=== PATIENT | male | born 1975 | race Caucasian/White ===

== ENCOUNTER 2019-08-19 00:51 | Inpatient (IN) | payer SELFPAY ==
[2019-08-19] MEDS ORDERED: MAGNE/ALUM HYDROXD 30 ML UCUP ONE (01:44)
[2019-08-19] MEDS ORDERED: NA CHLORIDE 0.9% 1,000 ML ONE (01:44)
[2019-08-19] MEDS ORDERED: LIDOCAINE VISCOUS 2% SOLN 15 ML UDC ONE (01:44)
[2019-08-19 02:03] LABS: Absolute Lymphocytes (CBC) 2.6 K/uL (0.7-4.9); Basophils % 0.7 % (0-1.3); Hematocrit 47.4 % (39.6-49.0); Lymphocytes % 20.1 % (15.3-44.8); Protime INR 0.97; RBC Red Blood Cell Count 5.11 M/uL (4.33-5.43)
[2019-08-19 02:16] LABS: ALT/SGPT 34 U/L (12-78); AST/SGOT 26 U/L (15-37); Albumin 4.1 g/dL (3.4-5.0); Alkaline Phosphatase 73 U/L (45-117); BUN Blood Urea Nitrogen 20 mg/dL (7-18); Bicarbonate 24 mmol/L (21-32); Bilirubin Direct < 0.1 mg/dL (0-0.2); Bilirubin Total 0.4 mg/dL (0.2-1.0); Glucose Level 141 mg/dL (74-106); Magnesium 2.1 mg/dL (1.8-2.4); NT PRO-BNP 131 pg/mL (<125); Potassium 3.7 mmol/L (3.5-5.1); Protein, Total 7.7 g/dL (6.4-8.2); Sodium Level 141 mmol/L (136-145)
[2019-08-19 02:17] LABS: Troponin (Emerg Dept Use Only) 1.28 ng/mL (0.0-0.045)
--- NOTE | 2019-08-19 02:29 | ER ---
Nurse's Notes [facility] Name: Dawson Renee Age: 44 yrs Sex: Male : 1975 Arrival Date: 08/19/2019 Time: 00:54 Bed 13 Private MD: Diagnosis: Other chest pain;Essential (primary) hypertension;Tobacco abuse counseling;Tobacco use Presentation: 08/19 01:10 Presenting complaint: Patient states: he woke up this morning with the glands in his bb neck swollen and his "lungs feel on fire" pt denies nausea, light-headedness, he is also c/o left arm pain. Transition of care: patient was not received from another setting of care. Onset of symptoms was August 18, 2019. Risk Assessment: Do you want to hurt yourself or someone else? Patient reports no desire to harm self or others. Initial Sepsis Screen: Does the patient meet any 2 criteria? No. Patient's initial sepsis screen is negative. Does the patient have a suspected source of infection? No. Patient's initial sepsis screen is negative. Care prior to arrival: None. 01:10 Method Of Arrival: Ambulatory bb 01:10 Acuity: LC 3 bb Historical: - Allergies: 01:15 No Known Allergies; bb - Home Meds: 01:15 None [Active]; bb - PMHx: 01:15 None; bb - PSHx: 01:15 Ear Tubes; bb - Immunization history:: Adult Immunizations up to date. - Social history:: Smoking status: Patient uses tobacco products, smokes two packs cigarettes per day. - Ebola Screening: : No symptoms or risks identified at this time. - Family history:: not pertinent. Screenin:54 Abuse screen: Denies threats or abuse. Nutritional screening: No deficits noted. jd3 Tuberculosis screening: No symptoms or risk factors identified. Fall Risk Ambulatory Aid- None/Bed Rest/Nurse Assist (0 pts). Gait- Normal/Bed Rest/Wheelchair (0 pts) Mental Status- Oriented to own ability (0 pts). Total Childers Fall Scale indicates No Risk (0-24 pts). Assessment: 01:35 General: Appears in no apparent distress. uncomfortable, Behavior is calm, cooperative, jd3 appropriate for age. Pain: Complains of pain in chest, left arm and throat Quality of pain is described as aching. Neuro: Level of Consciousness is awake, alert, obeys commands, Oriented to person, place, time, situation. Cardiovascular: Heart tones S1 S2 present Capillary refill < 3 seconds Patient's skin is warm and dry. Respiratory: Airway is patent Respiratory effort is even, unlabored, Respiratory pattern is regular, symmetrical, Breath sounds are clear bilaterally. Denies cough, shortness of breath. GI: No signs and/or symptoms were reported involving the gastrointestinal system. : No signs and/or symptoms were reported regarding the genitourinary system. EENT: No signs and/or symptoms were reported regarding the EENT system. Derm: Skin is intact, Skin is dry, Skin is normal, Skin temperature is warm. Musculoskeletal: Circulation, motion, and sensation intact. Range of motion: intact in all extremities. 02:30 Reassessment: Patient appears in no apparent distress at this time. No changes from [facility] previously documented assessment. Patient and/or family updated on plan of care and expected duration. Pain level reassessed. Patient is alert, oriented x 3, equal unlabored respirations, skin warm/dry/pink. 03:04 Reassessment: Patient appears in no apparent distress at this time. Patient and/or [facility] family updated on plan of care and expected duration. Pain level reassessed. Patient is alert, oriented x 3, equal unlabored respirations, skin warm/dry/pink. Patient states feeling better. 04:03 Reassessment: Patient appears in no apparent distress at this time. Patient and/or jd3 family updated on plan of care and expected duration. Pain level reassessed. Patient is alert, oriented x 3, equal unlabored respirations, skin warm/dry/pink. pt charting continued in [facility]. Vital Signs: 01:15 BP 153 / 92; Pulse 71; Resp 16 S; Temp 98.1(O); Pulse Ox 99% on R/A; Weight 72.57 kg bb (R); Height 5 ft. 1 in. (154.94 cm) (R); Pain 6/10; 01:54 BP 157 / 98; Pulse 65; Resp 18 S; Pulse Ox 97% on R/A; jd3 03:04 BP 128 / 73; Pulse 75; Resp 18 S; Pulse Ox 95% on R/A; Pain 3/10; jd3 04:03 BP 157 / 97; Pulse 64; Resp 17 S; Pulse Ox 97% on R/A; jd3 01:15 Body Mass Index 30.23 (72.57 kg, 154.94 cm) bb ED Course: 00:54 Patient arrived in ED. cl3 01:13 Karan Dunn MD is Attending Physician. devon 01:15 Triage completed. bb 01:15 Arm band placed on Patient placed in an exam room, on a stretcher, on pulse oximetry. bb EKG completed in triage. Results shown to MD. 01:20 Arnoldo Snell, RN is Primary Nurse. jd3 01:36 Inserted saline lock: 20 gauge in right antecubital area, using aseptic technique. jd3 Blood collected. 01:54 Patient has correct armband on for positive identification. Placed in gown. Bed in low jd3 position. Call light in reach. Side rails up X 1. Adult w/ patient. 02:00 XRAY Chest (1 view) In Process Unspecified. EDMS 02:17 Notified ED physician of a critical lab result(s). troponin 1.8 Dr Dunn notified. bb 02:26 Chuck Sanchez MD is Hospitalizing Provider. devon 04:04 No provider procedures requiring assistance completed. Patient admitted, IV remains in jd3 place. 05:53 Notified ED physician of a critical lab result(s). troponin of 2.35. Dr Dunn bb notified. Administered Medications: 01:51 Drug: NS 0.9% 1000 ml Route: IV; Rate: 1 bolus; Site: right antecubital; jd3 02:50 Follow up: Response: No adverse reaction; IV Status: Completed infusion; IV Intake: jd3 1000ml 01:51 Drug: GI Cocktail without - (Maalox Suspension 30 ml, Lidocaine Liquid 2 % 15 jd3 ml) Route: PO; 02:50 Follow up: Response: No adverse reaction jd3 02:24 CANCELLED (Duplicate Order): PlaVIX 600 mg PO once devon 02:50 Drug: Zofran 4 mg Route: IVP; Site: right antecubital; jd3 03:50 Follow up: Response: No adverse reaction jd3 02:51 Not Given (Physician Discretion): Aspirin Chewable Tablet 324 mg PO once; 81 mg tablets jd3 x 4 02:52 Drug: Lovenox 1 mg/kg Route: Sub-Q; Site: abdomen; jd3 03:50 Follow up: Response: No adverse reaction jd3 02:52 Drug: Lopressor 25 mg Route: PO; jd3 03:50 Follow up: Response: No adverse reaction jd3 02:52 Drug: morphine 4 mg Route: IVP; Site: right antecubital; jd3 03:50 Follow up: Response: No adverse reaction; RASS: Alert and Calm (0) jd3 03:04 Drug: Pepcid 20 mg Route: IVP; Site: right antecubital; jd3 04:00 Follow up: Response: No adverse reaction jd3 03:04 Drug: Aspirin Chewable Tablet 81 mg Route: PO; jd3 04:04 Follow up: Response: No adverse reaction jd3 Intake: 02:50 IV: 1000ml; Total: 1000ml. jd3 Outcome: 02:22 Discharge ordered by . devon 02:27 Decision to Hospitalize by Provider. devon 04:04 Admitted to ER Hold. Please see [facility] for further documentation. jd3 04:04 Condition: stable 04:04 Instructed on the need for admit, Demonstrated understanding of instructions. 07:18 Patient left the ED. iw Signatures: Dispatcher [employer] EDKaran Au MD MD cha Ballard, Brenda RN Ingrid Montes RN RN iw Davies, Jonathon, RN RN jd3 Lewis, Charde cl3
--- NOTE | 2019-08-19 02:31 | EDPHYS ---
Physician Documentation [facility] Name: Dawson Renee Age: 44 yrs Sex: Male : 1975 Arrival Date: 08/19/2019 Time: 00:54 Bed 13 Private MD: MENA Physician Karan Dunn HPI: 08/19 01:23 This 44 yrs old Male presents to ER via Ambulatory with complaints of Swollen devon Glands. 01:23 The patient presents with sore throat. The patient describes throat pain as raw, devon scratchy. Onset: The symptoms/episode began/occurred 1 day(s) ago. The patient presents with pain, redness. The problem is located in the uvula, left aspect of posterior pharynx and right aspect of posterior pharynx. Modifying factors: The symptoms are alleviated by nothing, the symptoms are aggravated by nothing. Historical: - Allergies: 01:15 No Known Allergies; bb - Home Meds: 01:15 None [Active]; bb - PMHx: 01:15 None; bb - PSHx: 01:15 Ear Tubes; bb - Immunization history:: Adult Immunizations up to date. - Social history:: Smoking status: Patient uses tobacco products, smokes two packs cigarettes per day. - Ebola Screening: : No symptoms or risks identified at this time. - Family history:: not pertinent. ROS: 01:23 Constitutional: Negative for fever, chills, and weight loss, Eyes: Negative for injury, devon pain, redness, and discharge, Neck: Negative for injury, pain, and swelling, Cardiovascular: Negative for chest pain, palpitations, and edema, Respiratory: Negative for shortness of breath, cough, wheezing, and pleuritic chest pain, Abdomen/GI: Negative for abdominal pain, nausea, vomiting, diarrhea, and constipation, Back: Negative for injury and pain, : Negative for injury, bleeding, discharge, and swelling, MS/Extremity: Negative for injury and deformity, Skin: Negative for injury, rash, and discoloration, Neuro: Negative for headache, weakness, numbness, tingling, and seizure, Psych: Negative for depression, anxiety, suicide ideation, homicidal ideation, and hallucinations, Allergy/Immunology: Negative for hives, rash, and allergies, Endocrine: Negative for neck swelling, polydipsia, polyuria, polyphagia, and marked weight changes, Hematologic/Lymphatic: Negative for swollen nodes, abnormal bleeding, and unusual bruising. 01:23 ENT: Positive for sore throat. Exam: :23 Constitutional: This is a well developed, well nourished patient who is awake, alert, devon and in no acute distress. Head/Face: Normocephalic, atraumatic. Eyes: Pupils equal round and reactive to light, extra-ocular motions intact. Lids and lashes normal. Conjunctiva and sclera are non-icteric and not injected. Cornea within normal limits. Periorbital areas with no swelling, redness, or edema. Neck: Trachea midline, no thyromegaly or masses palpated, and no cervical lymphadenopathy. Supple, full range of motion without nuchal rigidity, or vertebral point tenderness. No Meningismus. Chest/axilla: Normal chest wall appearance and motion. Nontender with no deformity. No lesions are appreciated. Cardiovascular: Regular rate and rhythm with a normal S1 and S2. No gallops, murmurs, or rubs. Normal PMI, no JVD. No pulse deficits. Respiratory: Lungs have equal breath sounds bilaterally, clear to auscultation and percussion. No rales, rhonchi or wheezes noted. No increased work of breathing, no retractions or nasal flaring. Abdomen/GI: Soft, non-tender, with normal bowel sounds. No distension or tympany. No guarding or rebound. No evidence of tenderness throughout. Back: No spinal tenderness. No costovertebral tenderness. Full range of motion. Skin: Warm, dry with normal turgor. Normal color with no rashes, no lesions, and no evidence of cellulitis. MS/ Extremity: Pulses equal, no cyanosis. Neurovascular intact. Full, normal range of motion. Neuro: Awake and alert, GCS 15, oriented to person, place, time, and situation. Cranial nerves II-XII grossly intact. Motor strength 5/5 in all extremities. Sensory grossly intact. Cerebellar exam normal. Normal gait. Psych: Awake, alert, with orientation to person, place and time. Behavior, mood, and affect are within normal limits. :23 ENT: Posterior pharynx: Tonsils: bilaterally enlarged, with erythema, no exudate, Uvula: midline, edematous, erythema, swelling, that is mild, erythema, that is mild, exudate, is not appreciated, peritonsillar mass, is not appreciated, pooling of secretions, that are mild. Vital Signs: 01:15 BP 153 / 92; Pulse 71; Resp 16 S; Temp 98.1(O); Pulse Ox 99% on R/A; Weight 72.57 kg bb (R); Height 5 ft. 1 in. (154.94 cm) (R); Pain 6/10; 01:54 BP 157 / 98; Pulse 65; Resp 18 S; Pulse Ox 97% on R/A; jd3 03:04 BP 128 / 73; Pulse 75; Resp 18 S; Pulse Ox 95% on R/A; Pain 3/10; jd3 04:03 BP 157 / 97; Pulse 64; Resp 17 S; Pulse Ox 97% on R/A; jd3 01:15 Body Mass Index 30.23 (72.57 kg, 154.94 cm) MDM: 01:13 Patient medically screened. [facility] 01:29 Data reviewed: vital signs, nurses notes, lab test result(s), EKG, radiologic studies. [facility] 08/19 01:23 Order name: Basic Metabolic Panel; Complete Time: 02:19 [facility] 08/19 01:23 Order name: CBC with Diff; Complete Time: 02:19 [facility] 08/19 01:23 Order name: LFT's; Complete Time: 02:19 [facility] 08/19 01:23 Order name: Magnesium [facility] 08/19 01:23 Order name: NT PRO-BNP [facility] 08/19 01:23 Order name: PT-INR; Complete Time: 02:19 [facility] 08/19 01:23 Order name: Troponin (emerg Dept Use Only) [facility] 08/19 01:23 Order name: Strep; Complete Time: 02:19 [facility] 08/19 02:06 Order name: Throat Culture [facility] 08/19 04:40 Order name: Lipid Profile [facility] 08/19 04:40 Order name: Lipid Profile [facility] 08/19 04:40 Order name: NT PRO-BNP [facility] 08/19 04:40 Order name: NT PRO-BNP [facility] 08/19 04:40 Order name: Troponin I [facility] 08/19 01:23 Order name: XRAY Chest (1 view) [facility] 08/19 01:23 Order name: EKG; Complete Time: 01:27 [facility] 08/19 04:39 Order name: CONS Physician Consult [facility] 08/19 04:39 Order name: Echo with Doppler [facility] 08/19 04:40 Order name: Troponin I [facility] 08/19 04:40 Order name: Troponin I [facility] 08/19 01:23 Order name: Cardiac monitoring; Complete Time: 01:26 devon 08/19 01:23 Order name: EKG - Nurse/Tech; Complete Time: 01:26 devon 08/19 01:23 Order name: IV Saline Lock; Complete Time: 01:40 devon 08/19 01:23 Order name: Labs collected and sent; Complete Time: 01:40 devon 08/19 01:23 Order name: O2 Per Protocol; Complete Time: 01:26 devon 08/19 01:23 Order name: O2 Sat Monitoring; Complete Time: 01:26 devon 08/19 02:27 Order name: NPO; Complete Time: 02:29 devon 08/19 04:39 Order name: Heart Healthy [facility] 08/19 04:40 Order name: EKG Electrocardiogram [facility] 08/19 04:40 Order name: EKG Electrocardiogram [facility] 08/19 04:40 Order name: EKG Electrocardiogram [facility] 08/19 04:40 Order name: EKG Electrocardiogram [facility] Administered Medications: 01:51 Drug: NS 0.9% 1000 ml Route: IV; Rate: 1 bolus; Site: right antecubital; jd3 02:50 Follow up: Response: No adverse reaction; IV Status: Completed infusion; IV Intake: jd3 1000ml 01:51 Drug: GI Cocktail without - (Maalox Suspension 30 ml, Lidocaine Liquid 2 % 15 jd3 ml) Route: PO; 02:50 Follow up: Response: No adverse reaction jd3 02:24 CANCELLED (Duplicate Order): PlaVIX 600 mg PO once devon 02:50 Drug: Zofran 4 mg Route: IVP; Site: right antecubital; jd3 03:50 Follow up: Response: No adverse reaction jd3 02:51 Not Given (Physician Discretion): Aspirin Chewable Tablet 324 mg PO once; 81 mg tablets jd3 x 4 02:52 Drug: Lovenox 1 mg/kg Route: Sub-Q; Site: abdomen; jd3 03:50 Follow up: Response: No adverse reaction jd3 02:52 Drug: Lopressor 25 mg Route: PO; jd3 03:50 Follow up: Response: No adverse reaction jd3 02:52 Drug: morphine 4 mg Route: IVP; Site: right antecubital; jd3 03:50 Follow up: Response: No adverse reaction; RASS: Alert and Calm (0) jd3 03:04 Drug: Pepcid 20 mg Route: IVP; Site: right antecubital; jd3 04:00 Follow up: Response: No adverse reaction jd3 03:04 Drug: Aspirin Chewable Tablet 81 mg Route: PO; jd3 04:04 Follow up: Response: No adverse reaction jd3 Disposition: 08/19/19 02:27 Hospitalization ordered by Chuck Sanchez for Inpatient Admission. Preliminary diagnosis are Other chest pain, Essential (primary) hypertension, Tobacco abuse counseling, Tobacco use. - Bed requested for Intensive Care Unit. - Status is Inpatient Admission. iw - Condition is Fair. - Problem is new. - Symptoms have improved. UTI on Admission? No Signatures: Dispatcher [employer] EDMS Deb Hutchinson RN RN mw Anderson, Corey, MD MD cha Ballard, Brenda, RN RN bb Williams, Irene, RN RN iw Davies, Jonathon, RN RN jd3 Corrections: (The following items were deleted from the chart) 02:22 02:22 08/19/2019 02:22 Discharged to Home. Impression: Acute pharyngitis; Chest pain, devon unspecified - atypical. Condition is Stable. Discharge Instructions: Pharyngitis, Pharyngitis, [id number], Sore Throat, [id number]. Prescriptions for Augmentin 875-125 mg Oral Tablet - take 1 tablet by ORAL route every 12 hours for 10 days; 20 tablet, Pepcid 20 mg Oral Tablet - take 1 tablet by ORAL route every 12 hours; 20 tablet. and Forms are Medication Reconciliation Form, Thank You Letter, Antibiotic Education, Prescription Opioid Use. Follow up: Private Physician; When: 2 - 3 days; Reason: Recheck today's complaints, Continuance of care, Re-evaluation by your physician. Problem is new. Symptoms have improved. devon 02:24 02:20 PlaVIX 600 mg PO once ordered. devon devon 03:01 02:27 Hospitalization Ordered by Chuck Sanchez MD for Inpatient Admission. Preliminary diagnosis is Other chest pain; Essential (primary) hypertension; Tobacco abuse counseling; Tobacco use. Bed requested for Intensive Care Unit. Status is Inpatient Admission. Condition is Fair. Problem is new. Symptoms have improved. UTI on Admission? No. devon 06:02 03:01 08/19/2019 02:27 Hospitalization Ordered by Chuck Sanchez MD for Inpatient mw Admission. Preliminary diagnosis is Other chest pain; Essential (primary) hypertension; Tobacco abuse counseling; Tobacco use. Bed requested for [facility] ER HOLD. Status is Inpatient Admission. Condition is Fair. Problem is new. Symptoms have improved. UTI on Admission? No. mw 07:18 06:02 08/19/2019 02:27 Hospitalization Ordered by Chuck Sanchez MD for Inpatient iw Admission. Preliminary diagnosis is Other chest pain; Essential (primary) hypertension; Tobacco abuse counseling; Tobacco use. Bed requested for Intensive Care Unit. Status is Inpatient Admission. Condition is Fair. Problem is new. Symptoms have improved. UTI on Admission? No. mw
[2019-08-19] MEDS ORDERED: MORPHINE 4 MG/ML SYR ONE (02:39)
[2019-08-19] MEDS ORDERED: ONDANSETRON 4 MG/2 ML VIAL ONE (02:39)
[2019-08-19] MEDS ORDERED: ASPIRIN 81 MG CHEWABLE TABLET ONE (02:39)
[2019-08-19] MEDS ORDERED: METOPROLOL TAR 25 MG TAB ONE (02:39)
[2019-08-19] MEDS ORDERED: ENOXAPARIN 80 MG/0.8 ML SQ ONE (02:40)
[2019-08-19] MEDS ORDERED: FAMOTIDINE 20 MG/2 ML VIAL IV ONE (02:57)
--- NOTE | 2019-08-19 04:23 | P.HP ---
Certification for Inpatient Patient admitted to: Inpatient With expected LOS: >2 Midnights Patient will require the following post-hospital care: None Practitioner: I am a practitioner with admitting privileges, knowledge of patient current condition, hospital course, and medical plan of care. Services: Services provided to patient in accordance with Admission requirements found in Title 42 Section 412.3 of the Code of Federal Regulations Patient History Date of Service: 08/19/19 Reason for admission: Throat soreness/chest pain with radiation to the left arm History of Present Illness: Patient is a 44-year-old gentleman who came to the hospital with chest pain. Patient actually was having pain in his throat. He felt like he had an earache with swollen lymph nodes. He came into the ER because he was having some pressure around his chest region. In the emergency room his workup revealed an elevated troponin level. Patient did not have any EKG changes. Patient has a non ST-elevation myocardial infarction. Patient will be admitted to the hospital for further workup. Plan to do a cardiac catheterization this morning. Cardiology consultation and echocardiogram pending. Allergies No Known Allergies Allergy (Unverified 08/19/19 04:11) Home medications list reviewed: Yes - Past Medical/Surgical History Has patient received pneumonia vaccine in the past: No Diabetic: No -: Hypertension Past Surgical History: Patient denies surgical history - Family History Father Family History: Reviewed- Non-Contributory - Social History Smoking Status: Current every day smoker (2 packs per day) Alcohol use: No CD- Drugs: No Review of Systems 10-point ROS is otherwise unremarkable Physical Examination - Vital Signs Temperature: 98.6 F Blood Pressure: 140/90 Pulse: 88 Respirations: 18 Pulse Ox (%): 95 - Physical Exam General: Alert, In no apparent distress, Oriented x3 HEENT: Atraumatic, Normocephalic Neck: Supple, 2+ carotid pulse no bruit, JVD not distended, No Thyromegaly Respiratory: Clear to auscultation bilaterally, Normal air movement Cardiovascular: Normal pulses, Regular rate/rhythm, Normal S1 S2, No murmurs Gastrointestinal: Normal bowel sounds, Hypoactive, Soft and benign, Non- distended, No rebound, No guarding Musculoskeletal: No clubbing, No swelling Integumentary: No rashes Neurological: Normal gait, Normal speech, Normal strength at 5/5 x4 extr, Normal tone, Sensation intact, Cranial nerves 3-12 intact - Studies Laboratory Data (last 24 hrs) 08/19/19 01:36: PT 11.5, INR 0.97 08/19/19 01:36: WBC 13.1 H, Hgb 16.1, Hct 47.4, Plt Count 269 08/19/19 01:36: Sodium 141, Potassium 3.7, BUN 20 H, Creatinine 0.81, Glucose 141 H, Magnesium 2.1, Total Bilirubin 0.4, AST 26, ALT 34, Alkaline Phosphatase 73 Microbiology Data (last 24 hrs): 08/19/19 01:36 Throat Group A Streptococcus Rapid Screen - Final Assessment & Plan - Problems (Diagnosis) (1) Non-ST elevation (NSTEMI) myocardial infarction Current Visit: Yes Status: Acute (2) Tobacco abuse Current Visit: Yes Status: Acute (3) Hypertension Current Visit: Yes Status: Acute - Plan 1. Serial troponins and EKG 2. Cardiology consultation for cardiac catheterization 3. Echocardiogram will be reviewed 4. Anti-platelet therapy, anti coagulation, beta-lara, statin, and O2 as needed 5. IV morphine for pain 6. Nitro p.r.n. 7. GI and DVT prophylaxis Discharge Plan: Home Plan to discharge in: 24 Hours - Advance Directives Does patient have a Living Will: No Does patient have a Durable POA for Healthcare: No - Code Status/Comfort Care Code Status Assessed: Yes Code Status: Full Code Critical Care: No Time Spent Managing PTS Care (In Minutes): 45
[2019-08-19] MEDS ORDERED: ACETAMINOPHEN 500 MG TAB PO PRN (04:28)
[2019-08-19] MEDS ORDERED: HEPA 1000U/500MLS 1,000 UNIT/500 ML BAG IV ONE (06:38)
[2019-08-19] MEDS ORDERED: LIDOCAINE 1% 20 ML MDV ONE (06:38)
[2019-08-19] MEDS ORDERED: MIDAZOLAM HCL 2 MG/2 ML INJ ONE ×2 (07:25→07:26)
[2019-08-19] MEDS ORDERED: FENTANYL CITR 100 MCG/2 ML ONE (07:25)
[2019-08-19] MEDS ORDERED: NITROGLYCERIN/D5W 0 MG/0 ML BTL IV ONE (07:26)
[2019-08-19] MEDS ORDERED: NA CHLORIDE 0.9% 0 ML ONE (07:26)
[2019-08-19] MEDS ORDERED: NITROGLYCERIN 100 MCG/ML SYR (for cath lab use only) IV ONE (07:26)
[2019-08-19] MEDS ORDERED: ATROPINE SULF 1 MG/10 ML SYR IV ONE (07:26)
[2019-08-19] MEDS ORDERED: NA CHLORIDE 0.9% 500 ML ONE (07:28)
--- NOTE | 2019-08-19 07:39 | RAD REPORT ---
EXAM DESCRIPTION: RAD - Chest Single View - 08/19/2019 1:50 am CLINICAL HISTORY: Cough, chest pain is COMPARISON: None. TECHNIQUE: AP portable chest image was obtained 0141 hours . FINDINGS: No peripheral mass or consolidation. There is mild accentuation of the lung markings due t o shallow inspiration. No significant failure or volume overload. No pulmonary edema pattern. Trachea is midline. Heart and vasculature are normal. No measurable pleural effusion and no pneumotho rax. No acute bony abnormality seen. No acute aortic findings suspected. IMPRESSION: No acute cardiopulmonary process.
[2019-08-19] MEDS ORDERED: INFLUENZA VACCINE (for 3y+) 0.5 ML DOSE IMVAC ONE (09:00)
[2019-08-19] MEDS ORDERED: ENOXAPARIN 40 MG/0.4 ML SQ SCH (09:00)
[2019-08-19] MEDS ORDERED: ACETAMINOPHEN 325 MG TABLET PO PRN (10:00)
[2019-08-19] MEDS ORDERED: NA CHLORIDE 0.9% 1,000 ML IV SCH (10:00)
[2019-08-19] MEDS: METOPROLOL TAR 50 MG TAB PO SCH ×2 (10:11→20:47)
[2019-08-19] MEDS: CLOPIDOGREL 75 MG TABLET PO SCH (10:12)
[2019-08-19] MEDS: ASPIRIN EC 81 MG TAB PO SCH (10:12)
--- NOTE | 2019-08-19 11:02 | RAD REPORT ---
EXAM DESCRIPTION: [place]omen[place] Single View08/19/2019 10:36 am CLINICAL HISTORY: SOB COMPARISON: AUGUST 19, 2019 FINDINGS: Mild right upper parahilar opacity is suspected. Remainder lungs appear clear. The heart is normal size IMPRESSION: Mild right upper parahilar opacity may indicate a mild pneumonia.
[2019-08-19] MEDS: MORPHINE 4 MG/ML SYR IV PRN ×2 (11:47→18:01)
[2019-08-19] MEDS: CEFTRIAXONE/SWI 1gm 1 GM/10 ML SYR IV SCH (11:47)
[2019-08-19] MEDS: ONDANSETRON 4 MG/2 ML VIAL IV PRN ×2 (11:56→18:01)
[2019-08-19] MEDS ORDERED: BENZONATATE 100 MG CAP PO PRN (12:22)
[2019-08-19] MEDS: IPRATROPIUM BROM 0.5MG/2.5ML NEB SCH ×2 (13:00→19:50)
[2019-08-19] MEDS: ALBUTEROL 2.5 MG/3 ML NEB SOL NEB SCH ×2 (13:00→19:50)
--- NOTE | 2019-08-19 13:49 | EKG ---
Test Date: 2019-08-19 Test Time: 03:00:29 Glaciologist: SUKHDEEP MEASUREMENT RESULTS: Intervals: Rate: 65 SC: 170 QRSD: 88 QT: 386 QTc: 401 [place]: P: 39 SC: 170 QRS: 13 T: 47 INTERPRETIVE STATEMENTS: Sinus rhythm with premature atrial complexes Otherwise normal ECG Compared to ECG 08/19/2019 01:17:04 Atrial premature complex(es) now present Sinus arrhythmia no longer present Electronically Signed On 08-19-19 13:46:58 CARE SERVICES MANAGER by Santiago Tolentino
--- NOTE | 2019-08-19 13:49 | EKG ---
Test Date: 2019-08-19 Test Time: 01:17:04 [employer] Electronic War[employer] Officer: FRANKLIN MEASUREMENT RESULTS: Intervals: Rate: 64 [place]: 162 QRSD: 92 QT: 388 QTc: 400 [place]: P: 31 [place]: 162 QRS: 11 T: 39 INTERPRETIVE STATEMENTS: Normal sinus rhythm with sinus arrhythmia Normal ECG No previous ECG available for comparison Electronically Signed On 08-19-19 13:47:01 BREAST SPLITTER by Santiago Tolentino
--- NOTE | 2019-08-19 14:23 | ECHO ---
HEIGHT: 5 ft 1 in WEIGHT: 160 lb 0 oz DATE OF STUDY: 08/19/[address]: Chuck Sanchez MD 2-DIMENSIONAL: YES M.MODE: YES DOPPLER: YES COLOR FLOW: YES TDS: PORTABLE: DEFINITY: BUBBLE STUDY: DIAGNOSIS: NSTEMI CARDIAC HISTORY: CATHERIZATION: YES SURGERY: NO PROSTHETIC VALVE: NO PACEMAKER: NO MEASUREMENTS (cm) DIASTOLIC (NORMALS) SYSTOLIC (NORMALS) IVSd 1.0 (0.6-1.2) LA Diam 3.8 (1.9-4.0) LVEF 64% LVIDd 4.2 (3.5-5.7) LVIDs 2.7 (2.0-3.5) %FS 35% LVPWd 1.2 (0.6-1.2) Ao Diam 3.1 (2.0-3.7) 2 DIMENSIONAL ASSESSMENT: RIGHT ATRIUM: NORMAL LEFT ATRIUM: NORMAL RIGHT VENTRICLE: NORMAL LEFT VENTRICLE: NORMAL TRICUSPID VALVE: NORMAL MITRAL VALVE: NORMAL PULMONIC VALVE: NORMAL AORTIC VALVE: NORMAL PERICARDIAL EFFUSION: NONE AORTIC ROOT: NORMAL LEFT VENTRICULAR WALL MOTION: NORMAL DOPPLER/COLOR FLOW: NORMAL COMMENTS: NORMAL 2-DIMENSIONAL ECHOCARDIOGRAM WITH DOPPLER. NO WALL MOTION ABNORMALITY. NO EFFUSION. TECHNOLOGIST: SARAH FULTON
[2019-08-19] MEDS: NITROGLYCERIN 0.4 MG/TAB SL PRN ×2 (15:27→15:36)
--- NOTE | 2019-08-19 15:36 | CON ---
Date of Consultation: 08/19/[address] Sanchez's service on 08/19/2019. I saw the patient on 08/19/2019. Reason For Consultation: [id number] myocardial infarction. History Of Present Illness: Mr. Renee is 44, has really no past medical history except that he is a heavy smoker. Has a history of heart disease in his family. Denied diabetes, cholesterol, hyperten barbara. Came in with initially complained of sore throat and swollen tonsils, but he was also having s ome chest burning. His EKG was normal. His troponin was positive consistent with fpw-ED-ewntizhez m yocardial infarction. The patient denied PND, orthopnea, pedal edema, palpitations, or syncope. Sym ptoms have been going on for about 2 days. Past Medical History: Negative. Allergies: NONE. Review of Systems: Negative. Social History: Positive for tobacco. Family History: Positive for heart disease. Medications: At home are none. Physical Examination: Vital Signs: Stable. He was afebrile. He was in sinus rhythm. Continued to have some slight chest burning. HEENT: Negative. Neck: Supple with no bruit. Chest: Clear. Cardiac: Revealed irregular rhythm and rate. No murmurs, gallops, or rubs. Abdomen: Benign. Extremities: Revealed no clubbing, cyanosis, or edema. Diagnostic Data: Listed earlier. Impression And Plan: 1.Acute fjy-QF-zanuymulg myocardial infarction. 2.Viral syndrome. I will plan to take Mr. Renee to the cardiac catheterization lab today, do a heart catheterization t o define his coronary anatomy and decide on the plans later. CHRISSIE/JOVANNI Voice ID: [id number] Report ID: [id number]
[2019-08-19] MEDS: BUDESONIDE 0.25 MG/2 ML NEB NEB SCH (19:50)
[2019-08-19] MEDS: ATORVASTATIN 20 MG TAB PO SCH (20:46)
[2019-08-19] MEDS: ALPRAZOLAM 0.25 MG TABLET PO PRN (20:46)
[2019-08-19] MEDS: GUAIFENESIN 600 MG SA TAB PO SCH (20:47)
--- NOTE | 2019-08-19 21:33 | OP ---
Date of Procedure: 08/19/2019 Surgeon: Santiago Tolentino MD Aircraft Delivery Checker: Linda Astudillo. Procedure: Left heart catheterization and selective coronary arteriogram. Indication: Otn-GJ-inddwgmzs myocardial infarction. Procedure In Detail: Mr. Renee came into the emergency room on 08/19/2019, with chest burning, posi tive troponin, brought to the entry level lab technician from the emergency room. He was prepped and draped in the rou marlyn sterile fashion. Given Versed for sedation. A 6-Panamanian sheath introduced in the right common f emoral artery successfully. Pamela catheter 6-Panamanian left and right were used to inject the left ma in and right main respectively. His right coronary artery was normal, was dominant. He has some dif fuse plaquing throughout, but no focal stenosis. His LAD was normal. Circumflex itself was small, c ompletely occluded. He had large obtuse marginal that was patent. Complications: None. Estimated Blood Loss: 5 mL. 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 Plan: To continue medical therapy. No intervention indicated at this time. Patient has become asym ptomatic. He needs to be on aspirin, beta blockers, high-dose statin. He needs to quit smoking. Th e case was discussed with Dr. Willis. He also has a viral syndrome with elevated white count and a q uestionable pneumonia and we will watch him at least overnight before planning to discharge him. Jacky e was discussed with the patient. Anesthesia: Total conscious sedation was 30 minutes. CHRISSIE/JOVANNI Voice ID: [id number] Report ID: [id number]
[2019-08-20] MEDS: IPRATROPIUM BROM 0.5MG/2.5ML NEB SCH ×4 (02:35→22:15)
[2019-08-20] MEDS: ALBUTEROL 2.5 MG/3 ML NEB SOL NEB SCH ×4 (02:35→22:15)
[2019-08-20 05:23] LABS: Absolute Lymphocytes (CBC) 2.4 K/uL (0.7-4.9); Basophils % 0.3 % (0-1.3); Hematocrit 47.3 % (39.6-49.0); Lymphocytes % 13.4 % (15.3-44.8); RBC Red Blood Cell Count 5.12 M/uL (4.33-5.43)
[2019-08-20 05:30] LABS: BUN Blood Urea Nitrogen 10 mg/dL (7-18); Bicarbonate 26 mmol/L (21-32); Glucose Level 118 mg/dL (74-106); HDL Cholesterol 41 mg/dL (40-60); LDL Cholesterol, Calculated 160 (<130); Magnesium 2.2 mg/dL (1.8-2.4); Phosphorus 2.4 mg/dL (2.5-4.9); Sodium Level 137 mmol/L (136-145)
[2019-08-20] MEDS: BUDESONIDE 0.25 MG/2 ML NEB NEB SCH ×2 (09:15→22:15)
[2019-08-20] MEDS: CEFTRIAXONE/SWI 1gm 1 GM/10 ML SYR IV SCH (10:05)
[2019-08-20] MEDS: ASPIRIN EC 81 MG TAB PO SCH (10:06)
[2019-08-20] MEDS: POTASS/SODIUM PHOSPHATE 1 PKT POWD.PACK PO SCH ×2 (10:06→10:09)
[2019-08-20] MEDS: METOPROLOL TAR 50 MG TAB PO SCH ×2 (10:06→20:18)
[2019-08-20] MEDS: CLOPIDOGREL 75 MG TABLET PO SCH (10:06)
[2019-08-20] MEDS: GUAIFENESIN 600 MG SA TAB PO SCH ×2 (10:08→20:18)
[2019-08-20] MEDS ORDERED: ALBUTEROL INHALER 60 PUFF/8 GM IH PRN (11:18)
--- NOTE | 2019-08-20 12:37 | P.DS ---
Admission Date: 08/19/19 Discharge Date: 08/20/19 Primary Care Provider: none Disposition: ROUTINE DISCHARGE Discharge Condition: GOOD Reason for Admission: Throat soreness/chest pain with radiation to the left arm Consultations: Cardiology-Dr. Tolentino Procedures: Follow up CXR: COMPARISON: AUGUST 19, 2019 FINDINGS: Mild right upper parahilar opacity is suspected. Remainder lungs appear clear. The heart is normal size IMPRESSION: Mild right upper parahilar opacity may indicate a mild pneumonia. ECHO: Ejection fraction 64% LEFT VENTRICULAR WALL MOTION: NORMAL DOPPLER/COLOR FLOW: NORMAL COMMENTS: NORMAL 2-DIMENSIONAL ECHOCARDIOGRAM WITH DOPPLER. NO WALL MOTION ABNORMALITY. NO EFFUSION. Heart Catheterization: Date of Procedure: 08/19/2019 Surgeon: Santiago Tolentino MD Treatment Coordinator: Linda Astudillo. Procedure: Left heart catheterization and selective coronary arteriogram. Indication: Yam-RD-xsidcjeqc myocardial infarction. Procedure In Detail: His right coronary artery was normal, was dominant. He has some diffuse plaquing throughout, but no focal stenosis. His LAD was normal. Circumflex itself was small, completely occluded. He had large obtuse marginal that was patent. Complications: None. Estimated Blood Loss: 5 mL. 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 Plan: To continue medical therapy. No intervention indicated at this time. Patient has become asymptomatic. He needs to be on aspirin, beta blockers, high -dose statin. He needs to quit smoking. Medical Problem List: Chest pain secondary to NSTEMI with heart catheterization showing complete occlusion of small nondominant circumflex, medical therapy recommended Right upper lobe pneumonia Hypertension Hyperlipidemia Suspect COPD Tobacco abuse Brief History of Present Illness: 44-year-old male presented to emergency room with chest pain. Patient found to have NSTEMI. The patient was admitted for further evaluation. Hospital Course: Patient presented with chest pain. Patient found to have NSTEMI. Cardiology consulted. Cardiology recommended heart catheterization for further evaluation. Heart catheterization performed. Right Coronary artery was normal and dominant. Diffuse plaquing throughout noted but no stenosis. His LAD was normal. Circumflex was small and completely occluded. Patient had large fall obtuse margin that was patent. No intervention indicated at that time. Cardiology recommended medical therapy. Patient has done well post heart catheterization. At discharge patient will continue with aspirin 81 mg daily, metoprolol 25 mg 1 pill twice daily, Lipitor 40 mg daily and nitroglycerin to be use as needed for chest pain. Recommend to quit smoking. Patient plans to quit. Recommend follow up with cardiology in 1-2 weeks to follow up this hospitalization. Patient also found to have right upper lobe pneumonia. Pro calcitonin negative. Patient has done well with treatment. At discharge patient will continue with Augmentin 500 mg twice daily for 7 days. Patient may take over- the-counter Delsym for cough and Mucinex for congestion. Recommend to recheck chest x-ray in 2-4 weeks to monitor resolution. Patient with hypertension. As mentioned above patient will continue with metoprolol 25 mg 1 pill twice daily. Further adjustment can be done by his PCP or cardiology. Patient with hyperlipidemia. LDL elevated. As recommended above, patient will continue with Lipitor 40 mg daily. Suspect COPD due to his chronic tobacco abuse. Patient plans to quit. Will provide nicotine patch at discharge. Will also provide pro air 2 puffs 3 times a day as needed for shortness of breath and Dulera 1 puff twice daily. Sample of Dulera 1 puff twice daily will be provided. Recommend to follow up with pulmonology as an outpatient to further evaluate. Patient may require pulmonary function tests in the near future to further assess. Patient plans to establish care with a local physician. Will provide information on [facility]. Vital Signs/Physical Exam: Temp Pulse Resp BP Pulse Ox 98.3 F 74 20 135/78 93 08/20/19 12:00 08/20/19 12:00 08/20/19 12:00 08/20/19 12:00 08/20/19 12:00 General: Alert, In no apparent distress, Oriented x3, Cooperative HEENT: Atraumatic Neck: Supple Respiratory: Clear to auscultation bilaterally, Normal air movement Cardiovascular: Normal pulses, Regular rate/rhythm Gastrointestinal: Normal bowel sounds, Soft and benign, Non-distended Musculoskeletal: No contractures, No erythema, No tenderness, No warmth Integumentary: No tenderness/swelling, No erythema, No warmth, No cyanosis Neurological: Normal speech, Normal strength at 5/5 x4 extr, Normal tone Laboratory Data at Discharge: WBC 17.9 K/uL (4.3-10.9) H D 08/20/19 04:45 Hgb 15.9 g/dL (13.6-17.9) 08/20/19 04:45 Hct 47.3 % (39.6-49.0) 08/20/19 04:45 Plt Count 265 K/uL (152-406) 08/20/19 04:45 PT 11.5 SECONDS (9.5-12.5) 08/19/19 01:36 INR 0.97 08/19/19 01:36 Sodium 137 mmol/L (136-145) 08/20/19 04:45 Potassium 4.0 mmol/L (3.5-5.1) 08/20/19 04:45 BUN 10 mg/dL (7-18) 08/20/19 04:45 Creatinine 0.71 mg/dL (0.55-1.3) 08/20/19 04:45 Glucose 118 mg/dL (74-106) H 08/20/19 04:45 Phosphorus 2.4 mg/dL (2.5-4.9) L 08/20/19 04:45 Magnesium 2.2 mg/dL (1.8-2.4) 08/20/19 04:45 Total Bilirubin 0.4 mg/dL (0.2-1.0) 08/19/19 01:36 AST 26 U/L (15-37) 08/19/19 01:36 ALT 34 U/L (12-78) 08/19/19 01:36 Alkaline Phosphatase 73 U/L (45-117) 08/19/19 01:36 Troponin I 7.58 ng/mL (0.0-0.045) H* 08/19/19 13:55 Triglycerides 113 mg/dL (<150) 08/20/19 04:45 Cholesterol 224 mg/dL (<200) H 08/20/19 04:45 HDL Cholesterol 41 mg/dL (40-60) 08/20/19 04:45 Cholesterol/HDL Ratio 5.46 08/20/19 04:45 Home Medications: Amoxicillin/Potassium Clav [Augmentin 500-125 Tablet] 1 each PO BID #14 tablet 08/20/19 Aspirin [Aspirin EC 81 MG] 81 mg PO DAILY #90 tablet. 08/20/19 Atorvastatin Calcium [Lipitor] 40 mg PO BEDTIME #30 tab 08/20/19 Mometasone/Formoterol [Dulera 100 Mcg/5 Mcg Inhaler] 1 puff IH BID #1 inhaler Nicotine [Nicoderm] 1 patch TD DAILY #30 patch.td24 08/20/19 Nitroglycerin [Nitrostat] 0.4 mg SL SEECOM #1 btl 08/20/19 RX: Albuterol Inhaler [Ventolin Inhaler*] 2 puff IH TID PRN #1 hfa.aer.ad RX: Metoprolol Tartrate [Lopressor*] 25 mg PO BID #60 tab 08/20/19 New Medications: Amoxicillin/Potassium Clav [Augmentin 500-125 Tablet] 1 each PO BID #14 tablet Aspirin [Aspirin EC 81 MG] 81 mg PO DAILY #90 tablet. Atorvastatin Calcium [Lipitor] 40 mg PO BEDTIME #30 tab Mometasone/Formoterol [Dulera 100 Mcg/5 Mcg Inhaler] 1 puff IH BID #1 inhaler Nicotine [Nicoderm] 1 patch TD DAILY #30 patch.td24 Nitroglycerin [Nitrostat] 0.4 mg SL SEECOM #1 btl RX: Albuterol Inhaler [Ventolin Inhaler*] 2 puff IH TID PRN #1 hfa.aer.ad PRN Reason: Shortness Of Breath RX: Metoprolol Tartrate [Lopressor*] 25 mg PO BID #60 tab Patient Discharge Instructions: 1. Recommend to establish care with a PCP to follow up this hospitalization. Patient will be provided information on [facility]. 2. Patient presented with chest pain. Patient found to have NSTEMI. Cardiology consulted. Cardiology recommended heart catheterization for further evaluation. Heart catheterization performed. Right Coronary artery was normal and dominant. Diffuse plaquing throughout noted but no stenosis. His LAD was normal. Circumflex was small and completely occluded. Patient had large fall obtuse margin that was patent. No intervention indicated at that time. Cardiology recommended medical therapy. Patient has done well post heart catheterization. At discharge patient will continue with aspirin 81 mg daily, metoprolol 25 mg 1 pill twice daily, Lipitor 40 mg daily and nitroglycerin to be use as needed for chest pain. Recommend to quit smoking. Patient plans to quit. Recommend follow up with cardiology in 1-2 weeks to follow up this hospitalization. 3. Patient also found to have right upper lobe pneumonia. Pro calcitonin negative. Patient has done well with treatment. At discharge patient will continue with Augmentin 500 mg twice daily for 7 days. Patient may take [id number] Delsym for cough and Mucinex for congestion. Recommend to recheck chest x-ray in 2-4 weeks to monitor resolution. 4. Patient with hypertension. As mentioned above patient will continue with metoprolol 25 mg 1 pill twice daily. Further adjustment can be done by his PCP or cardiology. 5. Patient with hyperlipidemia. LDL elevated. As recommended above, patient will continue with Lipitor 40 mg daily. 6. Suspect COPD due to his chronic tobacco abuse. Patient plans to quit. Will provide nicotine patch at discharge. Will also provide pro air 2 puffs 3 times a day as needed for shortness of breath and Dulera 1 puff twice daily. Sample of Dulera 1 puff twice daily will be provided. Recommend to follow up with pulmonology as an outpatient to further evaluate. Patient may require pulmonary function tests in the near future to further assess. Diet: AHA Activity: Ad radha Time spent managing pt's care (in minutes): 55
--- NOTE | 2019-08-20 13:17 | RAD REPORT ---
EXAM DESCRIPTION: RAD - Chest Pa And Lat (2 Views) - 08/20/2019 1:10 pm CLINICAL HISTORY: follow up pneumonia COMPARISON: Chest Single View dated 08/19/2019; Chest Single View dated 08/19/2019 TECHNIQUE: Frontal and lateral views of the chest were obtained. FINDINGS: The lungs are slightly underinflated. Prominent perihilar lung markings are noted. Finding s are slightly worse in the right upper lobe. Overall pattern is not substantially different. Heart size is normal and central vasculature is within normal limits. Small right pleural effusion has de veloped. No acute bony finding noted. No aortic abnormality. IMPRESSION: Prominent lung parenchymal pattern showing no change from August 19 imaging. New small right pleural effusion.
[2019-08-20] MEDS ORDERED: FUROSEMIDE 40 MG/4 ML VIAL IV ONE (16:00)
[2019-08-20] MEDS: ATORVASTATIN 20 MG TAB PO SCH (20:18)
[2019-08-20] MEDS: ALPRAZOLAM 0.25 MG TABLET PO PRN (20:18)
--- NOTE | 2019-08-20 20:34 | PN ---
Date of Progress Note: 08/20/2019 Mr. Renee had a catheterization yesterday after having an acute non-ST elevation myocardial infarcti on. The catheterization showed moderate diffuse plaquing in the LAD and the right coronary artery. He had a small circumflex that was completely occluded. It was nondominant. He had large first and second obtuse marginal. I decided against any intervention. He had an ostial circumflex stenosis as well. The plan was to treat him medically. He should be on aspirin, Plavix, Lipitor, and Toprol. There were some question regarding a possible pneumonia on x-ray. Chest x-ray is pending. Case was discussed with Dr. Willis. I am comfortable with him going home later on this evening or tomorrow. I would like to see him in the office in the next 2 to 4 weeks. He should have his tobacco issue dis cussed further and needs to have lipid profile down the road, probably a stress test every couple of years. CHRISSIE/JOVANNI Voice ID: [id number] Report ID: [id number]
[2019-08-21] MEDS: IPRATROPIUM BROM 0.5MG/2.5ML NEB SCH ×2 (02:57→08:59)
[2019-08-21] MEDS: ALBUTEROL 2.5 MG/3 ML NEB SOL NEB SCH ×2 (02:57→08:00)
[2019-08-21 05:13] LABS: Absolute Lymphocytes (CBC) 2.8 K/uL (0.7-4.9); Basophils % 0.4 % (0-1.3); Hematocrit 46.2 % (39.6-49.0); Lymphocytes % 18.7 % (15.3-44.8); MPV 7.8 fL (7.6-11.3); RBC Red Blood Cell Count 5.05 M/uL (4.33-5.43)
[2019-08-21 05:21] LABS: BUN Blood Urea Nitrogen 11 mg/dL (7-18); Bicarbonate 26 mmol/L (21-32); Glucose Level 110 mg/dL (74-106); Magnesium 2.1 mg/dL (1.8-2.4); Phosphorus 2.3 mg/dL (2.5-4.9); Potassium 3.4 mmol/L (3.5-5.1); Sodium Level 138 mmol/L (136-145)
[2019-08-21 06:21] VITALS: BMI 29.0
[2019-08-21] MEDS ORDERED: POTASSIUM PHOS IN 0.9 % NACL 15 MMOL/250 ML BAG IV ONE (07:00)
[2019-08-21 07:29] VITALS: O2SAT 95
[2019-08-21] MEDS ORDERED: POTASSIUM 25 MEQ EFFERV TAB PO ONE (08:00)
[2019-08-21 08:52] VITALS: TEMP 98.1
[2019-08-21] MEDS: BUDESONIDE 0.25 MG/2 ML NEB NEB SCH (08:59)
[2019-08-21] MEDS ORDERED: POTASS/SODIUM PHOSPHATE 1 PKT POWD.PACK PO SCH (09:00)
[2019-08-21] MEDS: GUAIFENESIN 600 MG SA TAB PO SCH (09:27)
[2019-08-21] MEDS: METOPROLOL TAR 50 MG TAB PO SCH (09:27)
[2019-08-21] MEDS: CLOPIDOGREL 75 MG TABLET PO SCH (09:27)
[2019-08-21] MEDS: ASPIRIN EC 81 MG TAB PO SCH (09:27)
[2019-08-21 09:31] VITALS: BP 115/73
[2019-08-21] MEDS: CEFTRIAXONE/SWI 1gm 1 GM/10 ML SYR IV SCH (09:31)
[2019-08-21] MEDS ORDERED: DULERA 100/5 (MOMETASONE/FORMOTEROL) INHALER IH SCH (10:15)
--- NOTE | 2019-08-21 12:06 | RAD REPORT ---
EXAM DESCRIPTION: RAD - Chest Pa And Lat (2 Views) - 08/21/2019 8:55 am CLINICAL HISTORY: follow up pneumonia Chest pain. COMPARISON: Chest Pa And Lat (2 Views) dated 08/20/2019; Chest Single View dated 08/19/2019; Chest Singl e View dated 08/19/2019 FINDINGS: Mild improvement is seen in lung aeration since the comparative study. Trace pleural effus ions persist. The heart is normal in size. No displaced fractures. IMPRESSION: Mild improvement is seen in lung aeration since the comparative study.
== END 2019-08-21 10:40 | disposition home or self-care (01) | DRG 280 ==
LOC: ER 00:51 → ERHOLD 04:44 → 3RD-ICU 08:54
PROVIDERS: ADMIT Hospitalist; ATTEND Family Medicine
PROC: 4A023N7 Measurement of Cardiac Sampling and Pressure, Left Heart, Percutaneous Approach (ICD-10-PCS; principal; 2019-08-19)
PROC: B215YZZ Fluoroscopy of Left Heart using Other Contrast (ICD-10-PCS; 2019-08-19)
DX: I21.4 Non-ST elevation (NSTEMI) myocardial infarction (principal); J18.9 Pneumonia, unspecified organism; J90 Pleural effusion, not elsewhere classified; I25.10 Atherosclerotic heart disease of native coronary artery without angina pectoris; F17.210 Nicotine dependence, cigarettes, uncomplicated; I10 Essential (primary) hypertension; J44.9 Chronic obstructive pulmonary disease, unspecified; E78.5 Hyperlipidemia, unspecified; B34.9 Viral infection, unspecified
CPT/HCPCS: 36415; 71045; 71046; 80048; 80061; 80076; 83735; 83880; 84100; 84145; 84484; 85025; 85610; 87040; 87070; 87081; 87205; 87804; 93005; 93306; 93454; 94640; 96361; 96372; 96374; 96375; 99285; C1760; C1893; J0583; J0696; J1650; J1940; J2250; J2405; J3010; J7030; J7040; J7606

== ENCOUNTER 2021-03-06 03:48 | Inpatient (IN) | payer SELFPAY ==
[2021-03-06] MEDS ORDERED: METHYLPREDNISOLONE 125 MG INJ ONE (04:45)
[2021-03-06] MEDS ORDERED: LEVALBUTEROL 1.25 MG/3 ML NEB ONE (04:46)
[2021-03-06] MEDS ORDERED: NA CHLORIDE 0.9% 1,000 ML ONE ×2 (04:46→11:09)
[2021-03-06] MEDS ORDERED: ACETAMINOPHEN 500 MG TAB ONE ×2 (05:43→05:48)
[2021-03-06 06:01] LABS: ALT/SGPT 77 U/L (12-78); AST/SGOT 74 U/L (15-37); Albumin 3.5 g/dL (3.4-5.0); Alkaline Phosphatase 75 U/L (45-117); BUN Blood Urea Nitrogen 13 mg/dL (7-18); Bicarbonate 21 mmol/L (21-32); Bilirubin Direct 0.2 mg/dL (0-0.2); Bilirubin Total 0.9 mg/dL (0.2-1.0); Glucose Level 129 mg/dL (74-106); Potassium 3.3 mmol/L (3.5-5.1); Protein, Total 6.9 g/dL (6.4-8.2); Sodium Level 135 mmol/L (136-145); Troponin I < 0.02 ng/mL (0.0-0.045)
[2021-03-06 06:15] LABS: Absolute Lymphocytes (CBC) 0.9 K/uL (0.7-4.9); Basophils % 0.7 % (0-1.3); Hematocrit 45.6 % (39.6-49.0); Lymphocytes % 16.3 % (15.3-44.8); RBC Red Blood Cell Count 4.95 M/uL (4.33-5.43)
--- NOTE | 2021-03-06 07:53 | RAD REPORT ---
EXAM DESCRIPTION: Philomena Single View03/06/2021 7:35 am CLINICAL HISTORY: Shortness of breath COMPARISON: 2019 FINDINGS: The lungs appear clear of acute infiltrate. The heart is normal size IMPRESSION: No acute abnormalities displayed
[2021-03-06] MEDS ORDERED: CEFTRIAXONE/SWI 1gm 1 GM/10 ML SYR ONE (08:34)
--- NOTE | 2021-03-06 08:38 | EDPHYS ---
Physician Documentation [facility] Name: Dawson Renee Age: 45 yrs Sex: Male : 1975 Arrival Date: 03/06/2021 Time: 03:53 Bed 6 Private MD: ED Physician vEer Cohn HPI: 03/06 04:29 This 45 yrs old Male presents to ER via Ambulatory with complaints of rn Shortness Of Breath. 04:29 The patient has shortness of breath at rest, with light activity. Onset: The rn symptoms/episode began/occurred 3 day(s) ago. Duration: The symptoms are intermittent. The patient's shortness of breath is aggravated by exertion, light activity, is alleviated by rest. Associated signs and symptoms: Pertinent positives: productive cough, fever, Pertinent negatives: hemoptysis, loss of consciousness. Severity of symptoms: At their worst the symptoms were moderate in the emergency department the symptoms are unchanged. The patient has experienced a previous episode. The patient has not recently seen a physician. Historical: - Allergies: 04:03 No Known Allergies; bb - Home Meds: 04:03 Metoprolol Tartrate Oral [Active]; atorvastatin oral [Active]; Aspirin Oral [Active]; bb - PMHx: 04:03 Hypertensive disorder; Myocardial infarction; high cholesterol; bb - PSHx: 04:03 Unable to Obtain; bb - Immunization history:: Adult Immunizations up to date, Client reports having NOT received the Covid vaccine. - Social history:: Smoking status: Patient reports the use of cigarette tobacco products, smokes 1.5 packs per day, Patient/guardian denies using alcohol. - Family history:: not pertinent. - Hospitalizations: : No recent hospitalization is reported. ROS: 04:29 Constitutional: Positive for fever and chills Eyes: Negative for injury, pain, redness, rn and discharge, ENT: Negative for injury, pain, and discharge, Neck: Negative for injury, pain, and swelling, Cardiovascular: Negative for chest pain, palpitations, and edema, Respiratory: Positive for productive cough Abdomen/GI: Negative for abdominal pain, nausea, vomiting, diarrhea, and constipation, Back: Negative for injury and pain, : Negative for injury, bleeding, discharge, and swelling, MS/Extremity: Negative for injury and deformity, Skin: Negative for injury, rash, and discoloration, Neuro: Negative for headache, weakness, numbness, tingling, and seizure. Exam: 04:29 Constitutional: This is a well developed, well nourished patient who is awake, alert, rn and in no acute distress. Head/Face: Normocephalic, atraumatic. Eyes: Periorbital areas with no swelling, redness, or edema. ENT: Dry mucous membranes. No stridor Cardiovascular: Regular rate and rhythm. No pulse deficits. Respiratory: Mild tachypnea without retractions Abdomen/GI: Soft, non-tender, with normal bowel sounds. No distension or tympany. No guarding or rebound. No evidence of tenderness throughout. Skin: Warm, dry MS/ Extremity: Pulses equal, no cyanosis. Neurovascular intact. Full, normal range of motion. Equal circumference. Neuro: Awake and alert, GCS 15 Vital Signs: 03:56 BP 131 / 75; Pulse 93; Resp 20 S; Temp 103.3(O); Pulse Ox 98% on R/A; Weight 70.31 kg bb (R); Height 5 ft. 1 in. (154.94 cm) (R); Pain 2/10; 05:38 BP 134 / 68; Pulse 119; Resp 19; Pulse Ox 93% ; ea 06:25 BP 123 / 67; Pulse 97; Resp 20; Temp 101.4(O); Pulse Ox 97% on R/A; ak2 07:21 BP 91 / 53; Pulse 82; Resp 28; Pulse Ox 94% ; hb 08:15 BP 98 / 45; Pulse 76; Resp 19; Temp 99.2(TE); Pulse Ox 93% on R/A; hb 09:14 BP 92 / 53; Pulse 80; Resp 19; Pulse Ox 96% on R/A; hb 10:00 BP 91 / 46; Pulse 56; Resp 21; Temp 99.1; Pulse Ox 95% on R/A; hb 03:56 Body Mass Index 29.29 (70.31 kg, 154.94 cm) bb MDM: 04:05 Patient medically screened. rn 06:44 Differential diagnosis: Bronchitis Chronic Obstructive Pulmonary Disease pneumonia, rn Pneumothorax pulmonary edema. Data reviewed: vital signs, nurses notes, lab test result(s), radiologic studies, plain films. Counseling: I had a detailed discussion with the patient and/or guardian regarding: the historical points, exam findings, and any diagnostic results supporting the discharge/admit diagnosis, lab results. Response to treatment: the patient's symptoms have mildly improved after treatment, and as a result, I will continue to observe the patient. ED course: Patient states feels a little bit better. Fever has come down to 101.4 oxygen around 92% heart rate improving. Covid still pending.. 06:56 Transition of care: After a detail discussion of the patient's case, care is rn transferred to Chuck Curtis MD. 08:36 Antibiotic administration: The patient is discharged and will get outpatient ma2 antibiotics. 03/06 04:13 Order name: Blood Culture Adult (2) rn 03/06 04:13 Order name: Flu rn 03/06 04:13 Order name: COVID-19 : Document "Date of Symptom Onset" if Symptomatic. rn 03/06 06:01 Order name: Lactate; Complete Time: 06:35 EDTX 03/06 06:01 Order name: Basic Metabolic Panel; Complete Time: 06:35 [facility] 03/06 06:01 Order name: Liver (Hepatic) Function; Complete Time: 06:35 EDTX 03/06 06:01 Order name: Troponin I; Complete Time: 06:35 EDTX 03/06 06:10 Order name: Influenza Screen (A ; Complete Time: 06:35 EDTX 03/06 06:15 Order name: CBC with Automated Diff; Complete Time: 06:35 EDTX 03/06 07:08 Order name: Procalcitonin; Complete Time: 08:04 [facility] 03/06 07:10 Order name: SARS-COV-2 RT PCR; Complete Time: 08:04 [facility] 03/06 07:53 Order name: RAD; Complete Time: 08:04 EDTX 03/06 08:13 Order name: Blood Culture [facility] 03/06 08:13 Order name: Blood Culture [facility] 03/06 10:01 Order name: Urinalysis [facility] 03/06 04:13 Order name: Accucheck; Complete Time: 05:16 03/06 04:13 Order name: Cardiac monitoring; Complete Time: 05:16 rn 03/06 04:13 Order name: EKG - Nurse/Tech; Complete Time: 05:16 rn 03/06 04:13 Order name: IV Saline Lock - Large Bore; Complete Time: 05:16 rn 03/06 04:13 Order name: Labs collected and sent; Complete Time: 05:16 rn 03/06 04:13 Order name: O2 Per Protocol; Complete Time: 05:16 rn 03/06 04:13 Order name: O2 Sat Monitoring; Complete Time: 05:16 rn 03/06 08:42 Order name: EKG Electrocardiogram; Complete Time: 09:22 EDMS 03/06 09:33 Order name: Diet Regular; Complete Time: 09:34 hb Administered Medications: 04:37 Drug: NS 0.9% 1000 ml Route: IV; Rate: 1000 ml; Site: right forearm; ea 04:37 Drug: SOLU-Medrol (methylPrednisoLONE) 125 mg Route: IVP; Site: right forearm; ea 05:32 Follow up: Response: No adverse reaction ea 04:37 Drug: Xopenex (levalbuterol) (3) 1.25 mg Route: Inhalation; ea 05:32 Drug: Tylenol 1000 mg Route: PO; ea 08:15 Follow up: Response: No adverse reaction hb 08:14 Drug: Rocephin (cefTRIAXone) 1 grams Route: IV; Rate: calculated rate; Site: right hb antecubital; 08:15 Follow up: IV Status: Completed infusion; IV Intake: 10ml hb 09:00 Follow up: Response: No adverse reaction hb 09:20 Drug: AZITHromycin 500 mg Route: IVPB; Infused Over: 1 hrs; Site: right antecubital; hb Disposition Summary: 03/06/21 08:37 Hospitalization Ordered Provider: Yefri Cohn Condition: Stable ma2 Problem: new ma2 Symptoms: are unchanged ma2 Bed/Room Type: Standard ma2 Hospitalization Status: Inpatient Admission(03/06/21 08:37) ma2 Location: Telemetry/MedSurg (Inpatient)(03/06/21 10:51) dw Room Assignment: 207(03/06/21 10:51) Diagnosis - Hypoxemia ma2 - Other pneumonia, unspecified organism ma2 Forms: - Medication Reconciliation Form ma2 - SBAR form ma2 Signatures: Dispatcher [employer] Shelly Hernandez RN RN dw Ballard, Brenda, RN RN bb Nieto, Roman, MD MD rn Baxter, Heather, RN RN Cottrell, Juani, RN RN Chuck Marin MD MD ma2 Corrections: (The following items were deleted from the chart) 08:23 08:05 BASIC METABOLIC PANEL+C.LAB.BRZ ordered. EDMS EDMS 08:23 08:05 CBC+H.LAB.BRZ ordered. EDMS EDMS 08:23 08:05 HEPATIC FUNCTION+C.LAB.BRZ ordered. EDMS EDMS 08:23 08:05 LACTATE+C.LAB.BRZ ordered. EDMS EDMS 08:23 08:05 PCT+C.LAB.BRZ ordered. EDMS EDMS 08:23 08:05 TROPONIN (EMERG DEPT USE ONLY)+C.LAB.BRZ ordered. EDMS EDMS 08:23 08:05 Chest Single View+RAD.RAD.BRZ ordered. EDMS EDMS 08:23 08:17 Blood Culture ordered. EDMS EDMS 08:23 08:17 Influenza Screen (A ordered. EDMS EDMS 08:23 08:17 CORONAVIRUS ordered. EDMS EDMS 08:37 08:37 Observation ma2 ma2 10:36 08:37 Telemetry/MedSurg (Inpatient) ma2 hb 10:36 08:37 ma2 hb 10:51 10:36 [facility] ER HOLD hb dw 10:51 10:36 ERHOLD- hb dw
--- NOTE | 2021-03-06 08:38 | ER ---
Nurse's Notes [facility] Name: Dawson Renee Age: 45 yrs Sex: Male : 1975 Arrival Date: 03/06/2021 Time: 03:53 Bed 6 Private MD: Diagnosis: Hypoxemia;Other pneumonia, unspecified organism Presentation: 03/06 03:56 Chief complaint: Patient states: he has felt disoriented the last 3 days then tonight bb he started having chills, sweats, coughing then losing his breath. Coronavirus screen: cough unrelated to allergies, shortness of breath, Client presents with at least one sign or symptom that may indicate coronavirus-19. Standard/surgical mask placed on the client. Ebola Screen: No symptoms or risks identified at this time. Initial Sepsis Screen: Does the patient meet any 2 criteria? Temp <36.0*C (96.8*F)) or > 38.3*C (100.9*F). Altered Mental Status. Yes Does the patient have a suspected source of infection? Yes: Productive cough/pneumonia. Risk Assessment: Do you want to hurt yourself or someone else? Patient reports no desire to harm self or others. Onset of symptoms was March 03, 2021. 03:56 Method Of Arrival: Ambulatory bb 03:56 Acuity: LC 3 bb Triage Assessment: 06:26 General: Appears in no apparent distress. Pain: Denies pain. Neuro: No deficits noted. ak2 Cardiovascular: Rhythm is sinus tachycardia. Respiratory: Onset: The symptoms/episode began/occurred gradually, the patient has mild shortness of breath. Respiratory: Breath sounds with wheezes. Respiratory: Breath sounds with wheezes bilaterally. Onset: The symptoms/episode began/occurred Historical: - Allergies: 04:03 No Known Allergies; bb - Home Meds: 04:03 Metoprolol Tartrate Oral [Active]; atorvastatin oral [Active]; Aspirin Oral [Active]; bb - PMHx: 04:03 Hypertensive disorder; Myocardial infarction; high cholesterol; bb - PSHx: 04:03 Unable to Obtain; bb - Immunization history:: Adult Immunizations up to date, Client reports having NOT received the Covid vaccine. - Social history:: Smoking status: Patient reports the use of cigarette tobacco products, smokes 1.5 packs per day, Patient/guardian denies using alcohol. - Family history:: not pertinent. - Hospitalizations: : No recent hospitalization is reported. Screenin:40 Abuse screen: Denies threats or abuse. Nutritional screening: No deficits noted. ea Tuberculosis screening: No symptoms or risk factors identified. Fall Risk IV access (20 points). Assessment: 04:40 General: Appears uncomfortable, Behavior is appropriate for age. Pain: Denies pain. ea Neuro: Level of Consciousness is awake, alert, obeys commands, Oriented to person, place, time. Cardiovascular: Patient's skin is warm and dry. Respiratory: Airway is patent Respiratory effort is even, unlabored, Respiratory pattern is regular, symmetrical. Respiratory: Reports shortness of breath. Derm: Skin is pink, warm \T\ dry. 06:25 Reassessment: Patient and/or family updated on plan of care and expected duration. Pain ak2 level reassessed. Cardiovascular: Rhythm is sinus tachycardia. Respiratory: Breath sounds with wheezes. 07:21 Reassessment: Patient appears in no apparent distress at this time. No changes from hb previously documented assessment. Patient and/or family updated on plan of care and expected duration. Pain level reassessed. 08:15 Reassessment: Patient appears in no apparent distress at this time. Patient and/or hb family updated on plan of care and expected duration. Pain level reassessed. 09:14 Reassessment: Dr. Cohn and Maggie RT at bedside. Pt admitted, awaiting floor orders and hb room assignment at this time. 10:00 Reassessment: Patient appears in no apparent distress at this time. No changes from previously documented assessment. Patient and/or family updated on plan of care and expected duration. Pain level reassessed. Vital Signs: 03:56 BP 131 / 75; Pulse 93; Resp 20 S; Temp 103.3(O); Pulse Ox 98% on R/A; Weight 70.31 kg bb (R); Height 5 ft. 1 in. (154.94 cm) (R); Pain 2/10; 05:38 BP 134 / 68; Pulse 119; Resp 19; Pulse Ox 93% ; ea 06:25 BP 123 / 67; Pulse 97; Resp 20; Temp 101.4(O); Pulse Ox 97% on R/A; ak2 07:21 BP 91 / 53; Pulse 82; Resp 28; Pulse Ox 94% ; hb 08:15 BP 98 / 45; Pulse 76; Resp 19; Temp 99.2(TE); Pulse Ox 93% on R/A; hb 09:14 BP 92 / 53; Pulse 80; Resp 19; Pulse Ox 96% on R/A; hb 10:00 BP 91 / 46; Pulse 56; Resp 21; Temp 99.1; Pulse Ox 95% on R/A; hb 03:56 Body Mass Index 29.29 (70.31 kg, 154.94 cm) bb ED Course: 03:53 Patient arrived in ED. ag3 04:03 Triage completed. bb 04:03 Arm band placed on Patient placed in an exam room, on a stretcher, on pulse oximetry. bb 04:05 Ever Cohn MD is Attending Physician. rn 04:10 Juani Cottrell RN is Primary Nurse. ea 04:40 Patient has correct armband on for positive identification. Bed in low position. Call ea light in reach. Side rails up X2. 06:26 No provider procedures requiring assistance completed. Inserted saline lock: 18 gauge ak2 in right antecubital area, using aseptic technique. 08:37 Yefri Cohn MD is Hospitalizing Provider. ma2 Administered Medications: 04:37 Drug: NS 0.9% 1000 ml Route: IV; Rate: 1000 ml; Site: right forearm; ea 04:37 Drug: SOLU-Medrol (methylPrednisoLONE) 125 mg Route: IVP; Site: right forearm; ea 05:32 Follow up: Response: No adverse reaction ea 04:37 Drug: Xopenex (levalbuterol) (3) 1.25 mg Route: Inhalation; ea 05:32 Drug: Tylenol 1000 mg Route: PO; ea 08:15 Follow up: Response: No adverse reaction hb 08:14 Drug: Rocephin (cefTRIAXone) 1 grams Route: IV; Rate: calculated rate; Site: right hb antecubital; 08:15 Follow up: IV Status: Completed infusion; IV Intake: 10ml hb 09:00 Follow up: Response: No adverse reaction hb 09:20 Drug: AZITHromycin 500 mg Route: IVPB; Infused Over: 1 hrs; Site: right antecubital; hb Intake: 08:15 IV: 10ml; Total: 10ml. hb Outcome: 08:37 Decision to Hospitalize by Provider. ma2 10:30 Admitted to ER Hold. Please see [facility] for further documentation. hb 10:30 Condition: stable 10:30 Instructed on the need for admit, Demonstrated understanding of instructions. 12:28 Patient left the ED. hb Signatures: Patricia Garcia RN RN bb Ever Cohn MD MD rn Baxter, Heather, RN RN Juani Cottrell RN RN ea Alzahri, Mohammad, MD MD ma2 Rakel Daniels Anthony ak2 Corrections: (The following items were deleted from the chart) 06:37 06:25 BP 123 / 67; Pulse 97bpm; Resp 20bpm; Pulse Ox 97% RA; ak2 ak2
[2021-03-06] MEDS ORDERED: AZITHROMYCIN IV 500 MG in NA CHLORIDE 0.9% 250 ML IVPB ONE (09:00)
--- NOTE | 2021-03-06 10:08 | P.HP ---
Certification for Inpatient Patient admitted to: Observation With expected LOS: <2 Midnights Practitioner: I am a practitioner with admitting privileges, knowledge of patient current condition, hospital course, and medical plan of care. Services: Services provided to patient in accordance with Admission requirements found in Title 42 Section 412.3 of the Code of Federal Regulations Patient History Date of Service: 03/06/21 Reason for admission: Pneumonia History of Present Illness: 45yo M, PMH: HTN, NSTEMI, presumed COPD, nicotine dependence. Presents to ED with ~3 days of not feeling well, feeling disoriented at times, followed by chills, malaise/fatigue, shortness of breath, and productive cough. He denies any sick contacts. Denies h/o COVID and has not been vaccinated. Labwork in ED rather unremarkable, CXR: possible pneumonia. He was noted to be slightly hypoxic of 91-92% on room air. BP was initially WNL, repeat blood pressures were 90-100/60s. Patient denies taking BP medications this morning. Reports only ate a few crackers yesterday. Decreased appetite for the last ~3 days as well. Denies wheezing, no chest pain/pressure, no nausea/vomiting, no abdominal pain, no change in bowel/bladder habits. ER physician would like to admit patient for further treatment for pneumonia. Allergies No Known Allergies Allergy (Unverified 08/19/19 04:11) Home Medications: Albuterol Inhaler [Ventolin Inhaler*] 2 puff IH TID PRN #1 hfa.aer.ad 08/20/19 Amoxicillin/Potassium Clav [Augmentin 500-125 Tablet] 1 each PO BID #14 tablet 08/20/19 Aspirin [Aspirin EC 81 MG] 81 mg PO DAILY #90 tablet. 08/20/19 Atorvastatin Calcium [Lipitor] 40 mg PO BEDTIME #30 tab 08/20/19 Metoprolol Tartrate [Lopressor*] 25 mg PO BID #60 tab 08/20/19 Mometasone/Formoterol [Dulera 100 Mcg/5 Mcg Inhaler] 1 puff IH BID #1 inhaler 08/20/19 Nicotine [Nicoderm] 1 patch TD DAILY #30 patch.td24 08/20/19 Nitroglycerin [Nitrostat] 0.4 mg SL SEECOM #1 btl 08/20/19 - Past Medical/Surgical History Diabetic: No -: Hypertension -: presumed COPD -: NSTEMI Past Surgical History: Patient denies surgical history - Family History Father -: Heart disease - Social History Smoking Status: Current every day smoker (1.5 ppd) Alcohol use: No CD- Drugs: No Caffeine use: Yes Place of Residence: Home Review of Systems 10-point ROS is otherwise unremarkable Physical Examination - Studies Laboratory Data (last 24 hrs) 03/06/21 04:30: WBC 5.80, Hgb 16.0, Hct 45.6, Plt Count 129 L 03/06/21 04:30: Sodium 135 L, Potassium 3.3 L, BUN 13, Creatinine 0.83, Glucose 129 H, Total Bilirubin 0.9, AST 74 H, ALT 77, Alkaline Phosphatase 75, Troponin I < 0.02 03/06/21 04:13: WBC Cancelled, Hgb Cancelled, Hct Cancelled, Plt Count Cancelled 03/06/21 04:13: Sodium Cancelled, Potassium Cancelled, BUN Cancelled, Creatinine Cancelled, Glucose Cancelled, Total Bilirubin Cancelled, AST Cancelled, ALT Cancelled, Alkaline Phosphatase Cancelled Microbiology Data (last 24 hrs): 03/06/21 04:30 Nasopharnyx Influenza Type A Antigen Screen - Final 03/06/21 04:30 Nasopharnyx Influenza Type B Antigen Screen - Final Assessment and Plan - Advance Directives Does patient have a Living Will: No Does patient have a Durable POA for Healthcare: No Physician Review Additional Text: Physical Exam Gen: NAD, AAOx3, diaphoretic HEENT: normal conjunctiva, sclera anicteric CV: regular rate/rhythm, no murmur Pulm: nonlabored respirations on RA, diminished at bases bilaterally Abd: soft, nontender, nondistended MSK: no joint swelling/tenderness Integumentary: no rashes, no lesions Neuro: AAOx3, moving all extremities, no focal findings Problem List Community acquired pneumonia vs COPD exacerbation HTN CAD -SIRS 3/4 - T: 103 on presentation, tachypneic. tachycardic, no leukocytosis. Currently afebrile, no tachypnea/tachycardia -does not appear septic at this time -BP initially WNL but now reading lower, will check manual, 1L bolus given in ED, continue IVF -hypotension likely secondary to hypovolemia, will see if responds to fluid, pt with minimal PO intake the last 2-3 days, and diaphoretic in ED -antibiotics given in ED, continue with Levaquin -confirm home meds, restart as appropriate -denies chest pain, trop negative, EKG ok -cultures ordered -covid negative -discussed tobacco cessation, no current plan, does not want nicotine patch at this time VTE: lovenox diet: regular Dispo: anticipate dc home in 24-48hrs Time Spent Managing Pts Care (In Minutes): 60
[2021-03-06] MEDS ORDERED: ONDANSETRON 4 MG/2 ML VIAL IV PRN (10:35)
[2021-03-06] MEDS ORDERED: ALBUTEROL 2.5 MG/3 ML NEB SOL NEB PRN ×2 (10:35→16:00)
[2021-03-06] MEDS: NA CHLORIDE 0.9% 1,000 ML IV SCH ×2 (10:35→22:06)
[2021-03-06] MEDS: Levofloxacin 750mg IV 750 MG/150 ML BAG IV SCH (10:35)
[2021-03-06] MEDS ORDERED: ACETAMINOPHEN 500 MG TAB PO PRN (10:35)
[2021-03-06 10:38] VITALS: BMI 29.2
--- NOTE | 2021-03-06 10:41 | EKG ---
Test Date: 2021-03-06 Test Time: 04:25:27 [employer] Frame Builder: GRACIELA MEASUREMENT RESULTS: Intervals: Rate: 88 KS: 176 QRSD: 96 QT: 328 QTc: 396 [place]: P: 53 KS: 176 QRS: -17 T: 59 INTERPRETIVE STATEMENTS: Normal sinus rhythm Normal ECG Compared to ECG 08/19/2019 03:00:29 Atrial premature complex(es) no longer present Electronically Signed On 03-06-21 10:41:01 CDT by Santiago Tolentino
[2021-03-06] MEDS ORDERED: Levofloxacin 750mg IV 750 MG/150 ML BAG IV ONE (11:09)
[2021-03-06] MEDS ORDERED: NA CHLORIDE 0.9% 1,000 ML IV ONE (15:00)
[2021-03-06] MEDS: IPRATROPIUM BROM 0.5MG/2.5ML NEB SCH ×2 (15:30→20:50)
[2021-03-06] MEDS: ALBUTEROL 2.5 MG/3 ML NEB SOL NEB SCH ×2 (15:30→20:50)
[2021-03-06] MEDS ORDERED: IPRATROPIUM BROM 0.5MG/2.5ML ONE (15:33)
[2021-03-06] MEDS ORDERED: ALBUTEROL 2.5 MG/3 ML NEB SOL ONE (15:33)
[2021-03-06 17:50] LABS: Urine Appearance CLEAR (Clear); Urine Bilirubin NEGATIVE (Negative); Urine Blood TRACE (Negative); Urine Color YELLOW (Yellow); Urine Glucose 3+ (Negative); Urine Protein TRACE (Negative); Urine Specific Gravity 1.025 (1.005-1.030); Urine pH 6.5 (5.0-7.0)
[2021-03-06 18:00] LABS: Urine Microscopic Reflex ORDER UMIC
[2021-03-06 18:07] LABS: Urine Bacteria <20 /HPF (NONE SEEN); Urine RBC <5 /HPF (NONE SEEN)
[2021-03-07 00:31] VITALS: TEMP 97.7
[2021-03-07] MEDS: IPRATROPIUM BROM 0.5MG/2.5ML NEB SCH ×2 (02:30→08:45)
[2021-03-07] MEDS: ALBUTEROL 2.5 MG/3 ML NEB SOL NEB SCH ×2 (02:30→08:45)
[2021-03-07 06:30] LABS: Absolute Lymphocytes (CBC) 2.4 K/uL (0.7-4.9); Basophils % 0.1 % (0-1.3); Hematocrit 40.5 % (39.6-49.0); Lymphocytes % 18.6 % (15.3-44.8); MPV 8.4 fL (7.6-11.3); RBC Red Blood Cell Count 4.38 M/uL (4.33-5.43)
[2021-03-07 06:31] LABS: BUN Blood Urea Nitrogen 12 mg/dL (7-18); Bicarbonate 24 mmol/L (21-32); Glucose Level 130 mg/dL (74-106); Magnesium 2.3 mg/dL (1.8-2.4); Potassium 3.7 mmol/L (3.5-5.1); Sodium Level 142 mmol/L (136-145)
[2021-03-07] MEDS: NA CHLORIDE 0.9% 1,000 ML IV SCH (06:54)
--- NOTE | 2021-03-07 07:10 | RAD REPORT ---
EXAM DESCRIPTION: RAD - Chest Single View - 03/07/2021 6:49 am CLINICAL HISTORY: SOB, cough, eval pneumonia COMPARISON: Chest Single View dated 03/06/2021; Chest Pa And Lat (2 Views) dated 08/21/2019; Chest Pa A nd Lat (2 Views) dated 08/20/2019; Chest Single View dated 08/19/2019 FINDINGS: Increased prominence of the central pulmonary vasculature. No trish pulmonary edema or con solidation per Cardiomegaly.No acute osseous abnormality. No significant pleural effusions or pneumot horax. IMPRESSION: No consolidative airspace disease. Increased vascular congestion.
[2021-03-07] MEDS: Levofloxacin 750mg IV 750 MG/150 ML BAG IV SCH (08:46)
[2021-03-07] MEDS ORDERED: ENOXAPARIN 40 MG/0.4 ML SQ SCH (09:00)
[2021-03-07] MEDS ORDERED: POTASSIUM CL SA 10 MEQ TAB PO ONE (09:00)
[2021-03-07 09:19] VITALS: BP 111/62
[2021-03-07 09:39] LABS: Blood Morphology Comment NOT SEEN (NOT SEEN); Platelet Estimate ADEQ; White Blood Cell Scan OK (OK)
[2021-03-07 11:26] VITALS: O2SAT 98
--- NOTE | 2021-03-07 20:20 | P.DS ---
Admission Date: 03/06/21 Discharge Date: 03/07/21 Disposition: ROUTINE DISCHARGE Discharge Condition: GOOD Reason for Admission: Pneumonia Procedures: Problem List Community acquired pneumonia HTN CAD Brief History of Present Illness: 45yo M, PMH: HTN, NSTEMI, presumed COPD, nicotine dependence. Presents to ED with ~3 days of not feeling well, feeling disoriented at times, followed by chills, malaise/fatigue, shortness of breath, and productive cough. He denies any sick contacts. Denies h/o COVID and has not been vaccinated. Labwork in ED rather unremarkable, CXR: possible pneumonia. He was noted to be slightly hypoxic of 91-92% on room air. BP was initially WNL, repeat blood pressures were 90-100/60s. Patient denies taking BP medications this morning. Reports only ate a few crackers yesterday. Decreased appetite for the last ~3 days as well. Denies wheezing, no chest pain/pressure, no nausea/vomiting, no abdominal pain, no change in bowel/bladder habits. ER physician would like to admit patient for further treatment for pneumonia. Hospital Course: Patient was treated with IVF and IV antibiotics. He had improvement and resol ution of his symptoms. He was feeling back to his typical self, remained afebrile, breathing comfortably on room air, and without any brain fog / disorientation. He was discharged home with 7 more days of levaquin. Advised to f/u with PCP in 3-5 days Blood pressure was on low-normal side, improved with treatment as noted above. Anti-hypertensives were held. Advised to slowly restart as BP increases at home. Vital Signs/Physical Exam: Physical Exam Gen: NAD, AAOx3, diaphoretic HEENT: normal conjunctiva, sclera anicteric CV: regular rate/rhythm, no murmur Pulm: nonlabored respirations on RA Abd: soft, nontender, nondistended MSK: no joint swelling/tenderness Integumentary: no rashes, no lesions Temp Pulse Resp BP Pulse Ox 97.7 F 73 16 111/62 94 03/07/21 08:00 03/07/21 08:00 03/07/21 08:00 03/07/21 08:00 03/07/21 08:00 Laboratory Data at Discharge: WBC 12.70 K/uL (4.3-10.9) H D 03/07/21 05:32 Hgb 13.9 g/dL (13.6-17.9) 03/07/21 05:32 Hct 40.5 % (39.6-49.0) 03/07/21 05:32 Plt Count 145 K/uL (152-406) L 03/07/21 05:32 Sodium 142 mmol/L (136-145) 03/07/21 05:32 Potassium 3.7 mmol/L (3.5-5.1) 03/07/21 05:32 BUN 12 mg/dL (7-18) 03/07/21 05:32 Creatinine 0.63 mg/dL (0.55-1.3) 03/07/21 05:32 Glucose 130 mg/dL (74-106) H 03/07/21 05:32 Magnesium 2.3 mg/dL (1.8-2.4) 03/07/21 05:32 Total Bilirubin 0.9 mg/dL (0.2-1.0) 03/06/21 04:30 AST 74 U/L (15-37) H 03/06/21 04:30 ALT 77 U/L (12-78) 03/06/21 04:30 Alkaline Phosphatase 75 U/L (45-117) 03/06/21 04:30 Troponin I < 0.02 ng/mL (0.0-0.045) 03/06/21 04:30 Home Medications: Aspirin [Aspirin EC 81 MG] 81 mg PO DAILY #90 tablet 08/20/19 Atorvastatin Calcium [Lipitor*] 40 mg PO BEDTIME #30 tab 08/20/19 Metoprolol Tartrate [Lopressor*] 25 mg PO BID #60 tab 08/20/19 levoFLOXacin [Levaquin] 750 mg PO DAILY 7 Days #7 tab 03/07/21 New Medications: levoFLOXacin [Levaquin] 750 mg PO DAILY 7 Days #7 tab Physician Discharge Instructions: You were found to likely have pneumonia. Your fever and symptoms improved with antibiotics. You are discharged with 7 days of antibiotics. Follow up with your PCP in 3-5 days. Your blood pressure was low-normal, recommend not taking your blood pressure medication for the next few days. Check your blood pressure at home and restart once your systolic blood pressure is >140 Diet: Regular Activity: Ad radha Followup: Unknown,U [Primary Care Provider] - Time spent managing pt's care (in minutes): 40
== END 2021-03-07 10:47 | disposition home or self-care (01) | DRG 194 ==
LOC: ER 03:48 → ERHOLD 09:57 → OBSVTOIN 11:14 → 2ND 12:02
PROVIDERS: ADMIT Hospitalist; ATTEND Hospitalist
DX: J18.9 Pneumonia, unspecified organism (principal); J44.0 Chronic obstructive pulmonary disease with (acute) lower respiratory infection; I10 Essential (primary) hypertension; I25.10 Atherosclerotic heart disease of native coronary artery without angina pectoris; F17.210 Nicotine dependence, cigarettes, uncomplicated; R09.02 Hypoxemia; I25.2 Old myocardial infarction; Z20.822 Contact with and (suspected) exposure to COVID-19
CPT/HCPCS: 36415; 71045; 80048; 80076; 81003; 81015; 83605; 83735; 84145; 84484; 85025; 87040; 87804; 93005; 94760; 96374; 96375; 99285; G0378; J0456; J0696; J1650; J2930; J7030; J7050; U0003

== ENCOUNTER 2021-12-24 11:33 | Inpatient (IN) | payer SELFPAY ==
[2021-12-24 12:58] LABS: Absolute Lymphocytes (CBC) 3.3 K/uL (0.7-4.9); Hematocrit 50.1 % (39.6-49.0); Lymphocytes % 29.9 % (15.3-44.8); MPV 7.4 fL (7.6-11.3); RBC Red Blood Cell Count 5.29 M/uL (4.33-5.43)
[2021-12-24 13:23] LABS: Potassium 4.1 mmol/L (3.5-5.1)
[2021-12-24 13:24] LABS: Troponin High Sensitivity 403.1 pg/mL (<58.9)
[2021-12-24] MEDS ORDERED: ASPIRIN 81 MG CHEWABLE TABLET ONE (13:47)
[2021-12-24] MEDS ORDERED: METOPROLOL TAR 25 MG TAB ONE (13:47)
[2021-12-24] MEDS ORDERED: CLOPIDOGREL 75 MG TABLET ONE (13:47)
--- NOTE | 2021-12-24 13:47 | EDPHYS ---
Physician Documentation [facility] Name: Dawson Renee Age: 46 yrs Sex: Male : 1975 Arrival Date: 12/24/2021 Time: 11:35 Bed 14 Private MD: ED Physician Arsh Almaguer HPI: 12/24 14:29 This 46 yrs old Male presents to ER via Ambulatory with complaints of Chest Pain. kdr 14:29 The patient or guardian reports chest pain that is located primarily in the anterior kdr chest wall. Onset: gradually, 3 day(s) ago. Patient presents to the ED with 3 days of intermittent chest discomfort. He has had a prior [place] in 2019. At that time he had minimal symptoms other than chest pain. He has no other associated symptoms. His chest pain is rated as 2/10. At times for the past couple of days it has been a 10+/10. Historical: - Allergies: 11:47 Milk/dairy products; jl7 - Home Meds: 11:47 None [Active]; jl7 - PMHx: 11:47 High Cholesterol; Hypertensive disorder; Myocardial infarction; jl7 - PSHx: 11:47 None; jl7 - Immunization history:: Client reports having NOT received the Covid vaccine. - Social history:: Smoking status: Patient reports the use of cigarette tobacco products, smokes 1.5 packs per day. ROS: 14:29 Constitutional: Negative for fever, chills, and weight loss, Eyes: Negative for injury, kdr pain, redness, and discharge, ENT: Negative for injury, pain, and discharge, Neck: Negative for injury, pain, and swelling, Respiratory: Negative for shortness of breath, cough, wheezing, and pleuritic chest pain, Abdomen/GI: Negative for abdominal pain, nausea, vomiting, diarrhea, and constipation, Back: Negative for injury and pain, : Negative for injury, bleeding, discharge, and swelling, MS/Extremity: Negative for injury and deformity, Skin: Negative for injury, rash, and discoloration, Neuro: Negative for headache, weakness, numbness, tingling, and seizure activity. Psych: Negative for depression, anxiety, suicide ideation, homicidal ideation, and hallucinations, Allergy/Immunology: Negative for hives, rash, and allergies, Endocrine: Negative for neck swelling, polydipsia, polyuria, polyphagia, and marked weight changes, Hematologic/Lymphatic: Negative for swollen nodes, abnormal bleeding, and unusual bruising. 14:29 Cardiovascular: Positive for chest pain, of the chest. Exam: 14:29 Constitutional: This is a well developed, well nourished patient who is awake, alert, kdr and in no acute distress. Head/Face: Normocephalic, atraumatic. Eyes: Pupils equal round and reactive to light, extra-ocular motions intact. Lids and lashes normal. Conjunctiva and sclera are non-icteric and not injected. Cornea within normal limits. Periorbital areas with no swelling, redness, or edema. Neck: Trachea midline, no thyromegaly or masses palpated, and no cervical lymphadenopathy. Supple, full range of motion without nuchal rigidity, or vertebral point tenderness. No Meningismus. Chest/axilla: Normal chest wall appearance and motion. Nontender with no deformity. No lesions are appreciated. Cardiovascular: Regular rate and rhythm with a normal S1 and S2. No gallops, murmurs, or rubs. Normal PMI, no JVD. No pulse deficits. Respiratory: Lungs have equal breath sounds bilaterally, clear to auscultation and percussion. No rales, rhonchi or wheezes noted. No increased work of breathing, no retractions or nasal flaring. Abdomen/GI: Soft, non-tender, with normal bowel sounds. No distension or tympany. No guarding or rebound. No evidence of tenderness throughout. Back: No spinal tenderness. No costovertebral tenderness. Full range of motion. Skin: Warm, dry with normal turgor. Normal color with no rashes, no lesions, and no evidence of cellulitis. MS/ Extremity: Pulses equal, no cyanosis. Neurovascular intact. Full, normal range of motion. Neuro: Awake and alert, GCS 15, oriented to person, place, time, and situation. Cranial nerves II-XII grossly intact. Motor strength 5/5 in all extremities. Sensory grossly intact. Cerebellar exam normal. Normal gait. Psych: Awake, alert, with orientation to person, place and time. Behavior, mood, and affect are within normal limits. Vital Signs: 11:44 BP 126 / 81; Pulse 70; Resp 15; Temp 98.1; Pulse Ox 98% on R/A; Weight 72.57 kg; Height jl7 5 ft. 1 in. (154.94 cm); Pain 2/10; 14:26 BP 132 / 57; Pulse 61; Resp 16; Pulse Ox 99% on R/A; iw 11:44 Body Mass Index 30.23 (72.57 kg, 154.94 cm) jl7 MDM: 13:47 Patient medically screened. kdr 14:29 Data reviewed: vital signs, nurses notes, lab test result(s), radiologic studies. kdr Counseling: I had a detailed discussion with the patient and/or guardian regarding: the historical points, exam findings, and any diagnostic results supporting the discharge/admit diagnosis, lab results, radiology results, the need for further work-up and treatment in the hospital. 12/24 12:40 Order name: Basic Metabolic Panel; Complete Time: 13:33 kdr 12/24 12:40 Order name: CBC with Diff; Complete Time: 13:33 kdr 12/24 12:40 Order name: Troponin HS; Complete Time: 13:33 kdr 12/24 14:25 Order name: SARS-COV-2 RT PCR (Document "Date of Onset" if Symptomatic) 12/24 14:31 Order name: Basic Metabolic Panel EDMO 12/24 14:31 Order name: Basic Metabolic Panel EDMO 12/24 14:31 Order name: CBC with Automated Diff EDMO 12/24 14:31 Order name: CBC with Automated Diff EDMO 12/24 14:31 Order name: Magnesium EDMO 12/24 14:31 Order name: Magnesium EDMO 12/24 14:31 Order name: Troponin High Sensitivity EDMO 12/24 14:31 Order name: Troponin High Sensitivity EDMO 12/24 14:31 Order name: Troponin High Sensitivity EDMO 12/24 14:33 Order name: Lipid Profile EDMO 12/24 12:40 Order name: XRAY Chest (1 view); Complete Time: 16:18 kdr 12/24 12:40 Order name: EKG; Complete Time: 12:41 kdr 12/24 12:40 Order name: Cardiac monitoring; Complete Time: 13:56 kdr 12/24 12:40 Order name: EKG - Nurse/Tech; Complete Time: 12:56 kdr 12/24 12:40 Order name: IV Saline Lock; Complete Time: 12:56 kdr 12/24 12:40 Order name: Labs collected and sent; Complete Time: 12:56 kdr 12/24 12:40 Order name: O2 Per Protocol; Complete Time: 12:56 kdr 12/24 14:29 Order name: CONS Physician Consult [facility] 12/24 14:31 Order name: Heart Healthy EDMO 12/24 14:31 Order name: NPO EDMO 12/24 14:31 Order name: Echo with Doppler EDMO 12/24 14:33 Order name: Lipid Profile [facility] 12/24 12:40 Order name: O2 Sat Monitoring; Complete Time: 12:56 kdr Administered Medications: 13:51 Drug: Aspirin Chewable Tablet 324 mg Route: PO; iw 14:15 Follow up: Response: No adverse reaction iw 14:25 Not Given (Hemodynamic Parameters): Lopressor (metoprolol TARTRATE)) 25 mg PO once iw 15:41 Drug: PlaVIX (clopidogrel) 300 mg Route: PO; iw 16:00 Follow up: Response: No adverse reaction iw 15:42 Drug: Lovenox (enoxaparin) 1 mg/kg Route: Sub-Q; Site: right lower abdomen; iw 16:00 Follow up: Response: No adverse reaction iw Disposition Summary: 12/24/21 13:47 Hospitalization Ordered Hospitalization Status: Inpatient Admission kdr Provider: Yefri Cohn Location: Telemetry/MedSurg (Inpatient) kdr Condition: Fair kdr Problem: new kdr Symptoms: have improved kdr Bed/Room Type: Standard kdr Room Assignment: 217(12/24/21 17:06) dw Diagnosis - Subsequent non-ST elevation (NSTEMI) myocardial infarction kdr - Chest pain, unspecified kdr Forms: - Medication Reconciliation Form kdr - SBAR form kdr Signatures: Dispatcher [employer] [facility] Shelly Wylie RN RN dw Arsh Almaguer MD MD kdr Ingrid Stallworth RN RN iw Enoc Ruiz, DIRECTOR SPECIALTY-C DIRECTOR SPECIALTY-Andrea1 Randa Kilgore RN RN jl7 Corrections: (The following items were deleted from the chart) 11:48 11:47 Allergies: No Known Allergies; jl7 jl7 17:06 13:47 kdr dw
--- NOTE | 2021-12-24 13:47 | ER ---
Nurse's Notes [facility] Name: Dawson Renee Age: 46 yrs Sex: Male : 1975 Arrival Date: 12/24/2021 Time: 11:35 Bed 14 Private MD: Diagnosis: Subsequent non-ST elevation (NSTEMI) myocardial infarction;Chest pain, unspecified Presentation: 12/24 11:44 Chief complaint: Patient states: Intermittent, non-radiating mid-sternal CP x 3 days, jl7 history of [place] Aug 2018. Coronavirus screen: At this time, the client does not indicate any symptoms associated with coronavirus-19. Ebola Screen: No symptoms or risks identified at this time. Initial Sepsis Screen: Does the patient meet any 2 criteria? No. Patient's initial sepsis screen is negative. Does the patient have a suspected source of infection? No. Patient's initial sepsis screen is negative. Risk Assessment: Do you want to hurt yourself or someone else? Patient reports no desire to harm self or others. Onset of symptoms was December 22, 2021. 11:44 Method Of Arrival: Ambulatory [facility] 11:44 Acuity: LC 2 jl7 Triage Assessment: 11:42 General: Appears in no apparent distress. uncomfortable, Behavior is calm, cooperative, jl7 appropriate for age. Pain: Complains of pain in mid-sternal area Pain does not radiate. Pain currently is 2 out of 10 on a pain scale. at worst was 12 out of 10 on a pain scale. Quality of pain is described as pressure, sharp, Pain began 2-3 days ago. Is intermittent. Cardiovascular: Patient's skin is warm and dry. Historical: - Allergies: 11:47 Milk/dairy products; jl7 - Home Meds: 11:47 None [Active]; jl7 - PMHx: 11:47 High Cholesterol; Hypertensive disorder; Myocardial infarction; jl7 - PSHx: 11:47 None; jl7 - Immunization history:: Client reports having NOT received the Covid vaccine. - Social history:: Smoking status: Patient reports the use of cigarette tobacco products, smokes 1.5 packs per day. Screenin:55 Abuse screen: Denies threats or abuse. Denies injuries from another. Nutritional iw screening: No deficits noted. Tuberculosis screening: No symptoms or risk factors identified. 17:29 Fall Risk None identified. iw Assessment: 12:55 General: Appears in no apparent distress. comfortable. iw 14:25 General: Behavior is calm, cooperative. Pain: Complains of pain in chest and iw mid-sternal area. Pain: Pain does not radiate. Neuro: Level of Consciousness is awake, alert, obeys commands, Oriented to person, place, time, situation. Vital Signs: 11:44 BP 126 / 81; Pulse 70; Resp 15; Temp 98.1; Pulse Ox 98% on R/A; Weight 72.57 kg; Height jl7 5 ft. 1 in. (154.94 cm); Pain 2/10; 14:26 BP 132 / 57; Pulse 61; Resp 16; Pulse Ox 99% on R/A; iw 11:44 Body Mass Index 30.23 (72.57 kg, 154.94 cm) jl7 ED Course: 11:35 Patient arrived in ED. as 11:36 Arsh Almaguer MD is Attending Physician. kdr 11:45 Arm band placed on left wrist. EKG completed in triage. Results shown to MD. jl7 11:46 Triage completed. jl7 12:16 Ingrid Stallworth, RN is Primary Nurse. iw 12:38 Patient has correct armband on for positive identification. Bed in low position. Call 5 light in reach. Side rails up X 1. Warm blanket given. secured entrance monitor on. Pulse ox on. NIBP on. 12:38 Initial lab(s) drawn, by me, held in ED. Inserted saline lock: 22 gauge in left 5 antecubital area, using aseptic technique. Blood collected. 13:46 Yefri Cohn MD is Hospitalizing Provider. kdr 14:13 XRAY Chest (1 view) In Process Unspecified. EDMS 14:26 No provider procedures requiring assistance completed. Patient maintains SpO2 iw saturation greater than 95% on room air. 17:29 Patient admitted, IV remains in place. iw Administered Medications: 13:51 Drug: Aspirin Chewable Tablet 324 mg Route: PO; iw 14:15 Follow up: Response: No adverse reaction iw 14:25 Not Given (Hemodynamic Parameters): Lopressor (metoprolol TARTRATE)) 25 mg PO once iw 15:41 Drug: PlaVIX (clopidogrel) 300 mg Route: PO; iw 16:00 Follow up: Response: No adverse reaction iw 15:42 Drug: Lovenox (enoxaparin) 1 mg/kg Route: Sub-Q; Site: right lower abdomen; iw 16:00 Follow up: Response: No adverse reaction Outcome: 13:47 Decision to Hospitalize by Provider. kdr 16:00 Admitted to ER Hold. Please see [facility] for further documentation. iw 17:28 Admitted to Med/surg Report called to FRANCISCO Nieto iw 17:28 Condition: good 17:28 Discharge instructions given to patient, Instructed on the need for admit, Demonstrated understanding of instructions. 17:44 Patient left the ED. moody Signatures: Dispatcher [employer] EDMS Arsh Almaguer MD MD kdr Martinez, Amelia as Williams, Irene, RN RN iw Martinez, Maria Randa Pineda RN RN jl7 Au-Stager, Heather, RN RN moody Corrections: (The following items were deleted from the chart) 11:48 11:47 Allergies: No Known Allergies; césar lindsey
--- NOTE | 2021-12-24 14:19 | RAD REPORT ---
EXAM DESCRIPTION: RAD - Chest Single View - 12/24/2021 2:11 pm CLINICAL HISTORY: CHEST PAIN Chest pain. COMPARISON: <Comparisons> FINDINGS: Portable technique limits examination quality. The lungs are grossly clear. The heart is normal in size. No displaced fractures. IMPRESSION: No acute intrathoracic process suspected.
[2021-12-24] MEDS ORDERED: ENOXAPARIN 80 MG/0.8 ML SQ ONE (14:26)
[2021-12-24] MEDS ORDERED: ONDANSETRON 4 MG/2 ML VIAL IV PRN (14:27)
--- NOTE | 2021-12-24 14:39 | P.HP ---
Certification for Inpatient Patient admitted to: Observation With expected LOS: <2 Midnights Practitioner: I am a practitioner with admitting privileges, knowledge of patient current condition, hospital course, and medical plan of care. Services: Services provided to patient in accordance with Admission requirements found in Title 42 Section 412.3 of the Code of Federal Regulations Patient History Date of Service: 12/24/21 Reason for admission: NSTEMI History of Present Illness: 46yo M, PMH: NSTEMI (2019), HTN, Nicotine dependence, COPD Presents to ED due to 2-3 days of progressively worsening substernal chest pain. Feels like something wants to rip out of chest. No specific aggravating or alleviating factors. Has become more frequent and more severe. lasts few minutes up to 40min today. Has been off medications due to cost for ~1 year. Continues to smoke ~1.5 pk/day. Drinks redbull 1-2x / day. No other medications / drugs. Denies any recent illness, no fever/chills, no nausea/vomiting, no dizziness, no numbness/tingling. In the ED, troponin 400s, EKG without ST changes, chest pain improved. Patient given aspirin. Metoprolol held due to heartrate in 50s. ED physician requests admission for further evaluation/management. Allergies No Known Allergies Allergy (Unverified 08/19/19 04:11) Home Medications: Aspirin [Aspirin EC 81 MG] 81 mg PO DAILY #90 tablet. 08/20/19 Atorvastatin Calcium [Lipitor*] 40 mg PO BEDTIME #30 tab 08/20/19 Metoprolol Tartrate [Lopressor*] 25 mg PO BID #60 tab 08/20/19 levoFLOXacin [Levaquin] 750 mg PO DAILY 7 Days #7 tab 03/07/21 - Past Medical/Surgical History Diabetic: No -: Hypertension -: COPD -: NSTEMI -: cardiac cath (2019) no stent - Family History Father -: Heart disease (NM in late 40s/50s (age)) Mother -: Heart disease (NM in late 40s (age)) - Social History Smoking Status: Current every day smoker Alcohol use: No CD- Drugs: No Caffeine use: Yes Place of Residence: Home Review of Systems 10-point ROS is otherwise unremarkable Physical Examination - Physical Exam General: Alert, In no apparent distress, Oriented x3 HEENT: EOMI, Sclerae nonicteric Neck: Supple, No LAD Respiratory: Clear to auscultation bilaterally, Normal air movement Cardiovascular: No edema, Regular rate/rhythm, No murmurs Gastrointestinal: Soft and benign, Non-distended, No tenderness Musculoskeletal: No tenderness Integumentary: No rashes, No significant lesion Neurological: Normal speech, Normal affect - Studies Laboratory Data (last 24 hrs) 12/24/21 12:40: WBC 10.9, Hgb 17.4, Hct 50.1 H, Plt Count 254 12/24/21 12:40: Sodium 139, Potassium 4.1, BUN 19 H, Creatinine 0.71, Glucose 104 Assessment and Plan - Advance Directives Does patient have a Living Will: No Does patient have a Durable POA for Healthcare: No Physician Review Additional Text: Problem List NSTEMI Chest pain HTN chronic COPD, without exacerbation Nicotine dependence heart healthy diet trend trop, telemetry cardiology consulted NPO @midnight, possible cath echo ordered aspirin, statin, plavix, lovenox ordered metoprolol held due to resting HR: low 50s in ED counselled on smoking cessation, does not want nicotine patch at this time VTE: lovenox Code: full Dispo: home, ~1-2 days, pending treatment / possible cardiac cath Time Spent Managing Pts Care (In Minutes): 65
[2021-12-24] MEDS: CLOPIDOGREL 75 MG TABLET PO SCH ×2 (15:00)
[2021-12-24 16:23] VITALS: BMI 30.2
[2021-12-24] MEDS ORDERED: ATORVASTATIN 40 MG TAB PO SCH ×2 (21:00)
[2021-12-24] MEDS ORDERED: ENOXAPARIN 100 MG/ML SYR SQ SCH (21:00)
[2021-12-24] MEDS ORDERED: ENOXAPARIN 80 MG/0.8 ML SQ SCH (21:00)
[2021-12-25] MEDS: NA CHLORIDE 0.9% 1,000 ML IV SCH ×2 (00:17→10:00)
[2021-12-25] MEDS: CLOPIDOGREL 75 MG TABLET PO SCH (05:23)
[2021-12-25 05:46] LABS: Absolute Lymphocytes (CBC) 3.5 K/uL (0.7-4.9); Hematocrit 46.9 % (39.6-49.0); Lymphocytes % 38.1 % (15.3-44.8); MPV 7.4 fL (7.6-11.3); RBC Red Blood Cell Count 4.95 M/uL (4.33-5.43)
[2021-12-25 06:01] LABS: Magnesium 1.8 mg/dL (1.8-2.4); Potassium 4.2 mmol/L (3.5-5.1)
--- NOTE | 2021-12-25 06:32 | P.PN ---
Date of Service: 12/25/21
--- NOTE | 2021-12-25 07:32 | EKG ---
Test Date: 2021-12-24 Test Time: 11:37:57 Restaurant Expeditor: DAPHNIE MEASUREMENT RESULTS: Intervals: Rate: 65 LA: 168 QRSD: 90 QT: 386 QTc: 401 Victor: P: 45 LA: 168 QRS: 18 T: 50 INTERPRETIVE STATEMENTS: Normal sinus rhythm Normal ECG Compared to ECG 03/06/2021 04:25:27 No significant changes Electronically Signed On 12-25-21 07:29:57 CDT by Santiago Tolentino
[2021-12-25] MEDS ORDERED: MIDAZOLAM HCL 2 MG/2 ML INJ ONE ×2 (08:58→11:13)
[2021-12-25] MEDS ORDERED: FENTANYL CITR 100 MCG/2 ML ONE (08:58)
[2021-12-25] MEDS ORDERED: HEPA 1000U/500MLS 1,000 UNIT/500 ML BAG IV ONE (08:58)
[2021-12-25] MEDS ORDERED: ATROPINE SULF 1 MG/10 ML SYR IV ONE (08:59)
[2021-12-25] MEDS ORDERED: NA CHLORIDE 0.9% 500 ML ONE (08:59)
[2021-12-25] MEDS ORDERED: NITROGLYCERIN 100 MCG/ML SYR (for cath lab use only) IV ONE (08:59)
[2021-12-25] MEDS ORDERED: NA CHLORIDE 0.9% 50 ML ONE (08:59)
[2021-12-25] MEDS ORDERED: NITROGLYCERIN/D5W 25 MG/250 ML BTL IV ONE (08:59)
[2021-12-25] MEDS ORDERED: LIDOCAINE 1% MPF 30 ML VIAL ONE (08:59)
[2021-12-25] MEDS ORDERED: ASPIRIN EC 81 MG TAB PO SCH (09:00)
[2021-12-25] MEDS ORDERED: MAGNESIUM SULFATE 1 gm IVPB 1 GM/100 ML BAG IV ONE (09:00)
[2021-12-25] MEDS ORDERED: ENOXAPARIN 80 MG/0.8 ML SQ SCH (09:00)
[2021-12-25 09:01] LABS: Protime INR 0.96
[2021-12-25] MEDS ORDERED: PRASUGREL (EFFIENT) 10 MG TAB ONE (12:27)
[2021-12-25 13:18] VITALS: O2SAT 97
[2021-12-25] MEDS: TRAMADOL HCL 50 MG TAB PO ONE ×2 (15:28→15:44)
[2021-12-25] MEDS ORDERED: TRAMADOL HCL 50 MG TAB PO SCH (15:58)
[2021-12-25 16:42] VITALS: BP 147/73; TEMP 97.3
--- NOTE | 2021-12-25 18:08 | P.DS ---
Admission Date: 12/25/21 Discharge Date: 12/25/21 Disposition: ROUTINE DISCHARGE Discharge Condition: GOOD Reason for Admission: NSTEMI Consultations: Cardiology - Dr. Tolentino Procedures: Problem List NSTEMI, required stent HTN chronic COPD, without exacerbation Nicotine dependence Brief History of Present Illness: 46yo M, PMH: NSTEMI (2019), HTN, Nicotine dependence, COPD Presents to ED due to 2-3 days of progressively worsening substernal chest pain. Feels like something wants to rip out of chest. No specific aggravating or alleviating factors. Has become more frequent and more severe. lasts few minutes up to 40min today. Has been off medications due to cost for ~1 year. Continues to smoke ~1.5 pk/day. Drinks redbull 1-2x / day. No other medications / drugs. Denies any recent illness, no fever/chills, no nausea/vomiting, no dizziness, no numbness/tingling. In the ED, troponin 400s, EKG without ST changes, chest pain improved. Patient given aspirin. Metoprolol held due to heartrate in 50s. ED physician requests admission for further evaluation/management. Hospital Course: Patient's troponin trended upwards. He denied any further chest pain. He underwent cardiac catheterization on 12/25 and found to have 80% stenosis and underwent stent placement. He was monitored post-operatively and did well. He was unable to urinate while laying on his back, however urinated without difficulty once able to stand up. He is discharged home with prescriptions for aspirin, plavix, and atorvastatin. Prescription for metoprolol was not given, patient's baseline heartrate was in low 50s. Discussed importance of medications and adherence to them. High risk of stent thrombosis if misses doses of aspirin/plavix. Follow up with Cardiology in ~2 weeks. Vital Signs/Physical Exam: Temp Pulse Resp BP Pulse Ox 97.3 F 49 L 16 147/73 H 97 12/25/21 16:00 12/25/21 16:00 12/25/21 16:04 12/25/21 16:00 12/25/21 16:04 General: Alert, In no apparent distress, Oriented x3 HEENT: Sclerae nonicteric Neck: Supple Respiratory: Clear to auscultation bilaterally, Normal air movement Cardiovascular: No edema, Regular rate/rhythm, No murmurs Gastrointestinal: Soft and benign, Non-distended, No tenderness Musculoskeletal: No tenderness Integumentary: No rashes, No significant lesion Neurological: Normal speech, Normal affect Laboratory Data at Discharge: WBC 9.1 K/uL (4.3-10.9) D 12/25/21 05:27 Hgb 16.4 g/dL (13.6-17.9) 12/25/21 05:27 Hct 46.9 % (39.6-49.0) 12/25/21 05:27 Plt Count 223 K/uL (152-406) 12/25/21 05:27 PT 10.6 SECONDS (9.5-12.5) 12/25/21 08:42 INR 0.96 12/25/21 08:42 APTT 29.9 SECONDS (24.3-36.9) 12/25/21 08:42 Sodium 140 mmol/L (136-145) 12/25/21 05:27 Potassium 4.2 mmol/L (3.5-5.1) 12/25/21 05:27 BUN 17 mg/dL (7-18) 12/25/21 05:27 Creatinine 0.59 mg/dL (0.55-1.3) 12/25/21 05:27 Glucose 87 mg/dL (74-106) 12/25/21 05:27 Magnesium 1.8 mg/dL (1.8-2.4) D 12/25/21 05:27 Triglycerides Cancelled 12/25/21 06:00 Cholesterol Cancelled 12/25/21 06:00 HDL Cholesterol Cancelled 12/25/21 06:00 Cholesterol/HDL Ratio Cancelled 12/25/21 06:00 Home Medications: Aspirin [Low Dose Aspirin EC] 81 mg PO DAILY 30 Days #30 12/25/21 Atorvastatin Calcium [Lipitor] 80 mg PO BEDTIME 30 Days #30 tab 12/25/21 Clopidogrel Bisulfate [Plavix*] 75 mg PO DAILY 30 Days #30 tablet 12/25/21 New Medications: Atorvastatin Calcium [Lipitor] 80 mg PO BEDTIME 30 Days #30 tab Aspirin [Low Dose Aspirin EC] 81 mg PO DAILY 30 Days #30 Clopidogrel Bisulfate [Plavix*] 75 mg PO DAILY 30 Days #30 tablet Diet: AHA Activity: Ad radha Time spent managing pt's care (in minutes): 45
--- NOTE | 2021-12-26 08:21 | ECHO ---
HEIGHT: 5 ft 1 in WEIGHT: 159 lb 15.831 oz DATE OF STUDY: 12/25/[address]: Yefri Cohn MD 2-DIMENSIONAL: YES M.MODE: YES DOPPLER: YES COLOR FLOW: YES TDS: NO PORTABLE: YES DEFINITY: NO BUBBLE STUDY: NO DIAGNOSIS: NSTEMI, CHEST PAIN CARDIAC HISTORY: CATHERIZATION: NO SURGERY: NO PROSTHETIC VALVE: NO PACEMAKER: NO MEASUREMENTS (cm) DIASTOLIC (NORMALS) SYSTOLIC (NORMALS) IVSd 0.9 (0.6-1.2) LA Diam 3.2 (1.9-4.0) LVEF 66% LVIDd 5.2 (3.5-5.7) LVIDs 3.3 (2.0-3.5) %FS 37% LVPWd 1.0 (0.6-1.2) Ao Diam 2.6 (2.0-3.7) 2 DIMENSIONAL ASSESSMENT: RIGHT ATRIUM: NORMAL LEFT ATRIUM: NORMAL RIGHT VENTRICLE: NORMAL LEFT VENTRICLE: NORMAL TRICUSPID VALVE: NORMAL MITRAL VALVE: NORMAL PULMONIC VALVE: NORMAL AORTIC VALVE: NORMAL PERICARDIAL EFFUSION: NONE AORTIC ROOT: NORMAL LEFT VENTRICULAR WALL MOTION: NORMAL DOPPLER/COLOR FLOW: NORMAL COMMENTS: NORMAL 2D ECHOCARDIOGRAM WITH DOPPLER. NO WALL MOTION ABNORMALITY. NO EFFUSION. TECHNOLOGIST: Fortunato PEACOCK
--- NOTE | 2021-12-26 10:15 | OP ---
Date of Procedure: 12/25/2021 Surgeon: Santiago Tolentino MD Carton Liner: Maggie Gurrola. Procedures: Left heart catheterization, selective coronary arteriogram, and primary stent of the RCA . Indication: Non-ST elevation myocardial infarction. Mr. Renee is 46. History of CAD in the past. Came in with non-STEMI. Procedure In Detail: Brought to the biological lab technician as an inpatient, prepped and draped in the routine ster ile fashion. Given Versed and fentanyl for sedation. A 6-Macanese sheath introduced in the right comm on femoral artery successfully using the Seldinger technique and 10 cc of Xylocaine. Pamela cathete rs were used to do the diagnostic catheterization. He was found to have a normal left main, normal L AD, a very small circumflex that was completely occluded. He had a very large ramus with a 50% steno sis in the mid ramus in a branch. He had an RCA that showed diffuse plaquing, was dominant and he moody d an 80% distal RCA stenosis. We decided to intervene. A JR4 catheter was used to cannulate the rig ht main with a guide catheter 6-Macanese with side hole. A [place] wire was used to cross the lesion shin ccessfully. A 2.25 x 12 Synergy stent was placed in the lesion at 11 atmospheres with 0% residual. The patient tolerated the procedure well. There were no complications. Blood loss was 5 mL. The steve mclean received Angiomax during the procedure. He received 60 of Effient. He received aspirin. Anesthesia: Total conscious sedation was 60 minutes. Final Diagnosis: Status post non-ST elevation myocardial infarction, status post successful primary stent of the RCA distally. The patient will stay in the hospital for the next 6 hours. He will be at bedrest for 2 hours. Bernie o-Seal was used to close the case. He will go home today. He should be on aspirin, Plavix, metoprolol, and high dose statin. I will see h im in the office in the next 2 weeks. CHRISSIE/JOVANNI Voice ID: [id number] Report ID: [id number]
--- NOTE | 2021-12-26 14:27 | CON ---
jason Date of Consultation: 12/24/2021 Reason For Consultation: Non-ST elevation myocardial infarction. History Of Present Illness: Mr. Renee is a 46-year-old male. I had done a catheterization on him a bout 2 years ago. He was at that time found to have some mild RCA disease, normal LAD, and a complet jair occluded circumflex. He was treated medically, but he had quit his medications and has been not seen in followup since. Comes in with chest pain with exertion, radiating to his arm with diaphoresi s and shortness of breath. Was found to have EKG showing ischemia. Troponin was positive. Allergies: NONE. Past Medical History: As stated above. Review of Systems: Negative. Social History: Positive for tobacco. Family History: Positive for heart disease. Medications: At home were none. Physical Examination: Vital Signs: Stable. He was afebrile. HEENT: Negative. Neck: Supple with no bruit. Chest: Clear. Cardiac: Revealed a regular rhythm and rate. No murmurs, gallops, or rubs. Abdomen: Benign. Extremities: Revealed no clubbing, cyanosis, or edema. Diagnostic Data: As stated earlier. Impression And Plan: Non-ST elevation myocardial infarction. The patient needs another heart cathet erization to re-define his coronary anatomy. Continue aspirin, statins, Lovenox, and low-dose beta b locker. The patient understands the risk and the benefits of the procedure and he agrees to proceed. We will plan for a catheterization in the morning. CHRISSIE/JOVANNI Voice ID: [id number] Report ID: [id number]
== END 2021-12-25 17:15 | disposition home or self-care (01) | DRG 247 ==
LOC: ER 11:33 → ERHOLD 14:39 → 2ND 17:33 → OBSVTOIN 12-25 08:15
PROVIDERS: ADMIT Hospitalist; ATTEND Hospitalist
PROC: 027034Z Dilation of Coronary Artery, One Artery with Drug-eluting Intraluminal Device, Percutaneous Approach (ICD-10-PCS; principal; 2021-12-25)
PROC: B2011ZZ Plain Radiography of Multiple Coronary Arteries using Low Osmolar Contrast (ICD-10-PCS; 2021-12-25)
DX: I21.4 Non-ST elevation (NSTEMI) myocardial infarction (principal); I25.10 Atherosclerotic heart disease of native coronary artery without angina pectoris; I10 Essential (primary) hypertension; J44.9 Chronic obstructive pulmonary disease, unspecified; E78.00 Pure hypercholesterolemia, unspecified; F17.210 Nicotine dependence, cigarettes, uncomplicated; Z20.822 Contact with and (suspected) exposure to COVID-19
CPT/HCPCS: 36415; 71045; 80048; 80061; 83735; 84484; 85025; 85347; 85610; 85730; 92928; 93005; 93306; 93454; 94760; 96372; 99285; C1725; C1760; C1893; G0269; G0378; J0583; J1644; J2250; J3010; J3475; J7030; J7040; Q9967; U0003